=== PATIENT | male | born 1950 | race Caucasian/White ===

== ENCOUNTER 2016-05-25 13:57 | Emergency (ER) | payer MEDICARE ==
--- NOTE | ~2016-05-25 | CR72 ---
[facility] A Service of [facility] RADIOLOGY TEXT RESULTS PATIENT: PARISH LEES LOCATION: SED : 50 UNIT #: [id number] AGE: [address]: Gerard Delgado MD SEX: M ORDER DR: [id number] [place] [id number] MR#: [id number] Acc #: [id number] NAME: PARISH LEES : 1950 SEX: M STUDY DATE/TIME: 05/25/2016 13:46 UNIT: SED ROOM: STUDY DESCRIPTION: CR Chest Single View Portable Attending Physician: Gerard Delgado M.D. Ordering Physician: Gerard Delgado M.D. Primary Care Physician: Primary Care Physician No MEDICAL IMAGING REPORT This report is preliminary unless electronic signature is present. EXAM Chest x-ray, 05/25/2016 HISTORY 66-year-old male in the ED complaining of 1-week history of shortness of air and cough. TECHNIQUE AP portable upright chest x-ray. COMPARISON Chest x-ray 07/09/2015. CT chest 11/02/2013 FINDINGS Current and prior studies show pulmonary emphysema with chronic changes in the upper lungs associated with old granulomatous infection, including reticulonodular upper lung interstitial disease and a chronic cavitary airspace at the right lung apex associated with pleural thickening and volume loss. These findings were best demonstrated on chest CT 11/02/2013. Today, there is new opacification of the right lung apex apparently due to pleural thickening or new pleural fluid causing opacification of the previously air-filled cavitary airspace. Although nonspecific, the appearance is highly concerning for active granulomatous infection, including reactivation TB or fungal superinfection of previously demonstrated cavitary airspace. Sputum evaluation and possible bronchoscopy may be helpful for further evaluation. Remaining portions of both lungs are clear. Heart size is normal. No basilar pleural effusion. IMPRESSION [facility] A Service of [facility] RADIOLOGY TEXT RESULTS PATIENT: PARISH LEES LOCATION: SED : 50 UNIT #: [id number] AGE: [address]: Gerard Delgado MD SEX: M ORDER DR: 1. Chronic upper lung changes associated with old granulomatous infection as detailed above. Pulmonary emphysema. 2. New changes at the right lung apex when compared with the prior study concerning for active atypical infection as noted above. Consider reactivation TB or fungal superinfection. Dictated by... Dagoberto Gil M.D. THIS IS AN ELECTRONICALLY VERIFIED REPORT Dagoberto Gil M.D. at 05/26/2016 8:40 AM MAILE/brayden TD: 05/25/2016 21:06 JOB #: [id number] MEDICAL IMAGING REPORT
[2016-05-25 13:57] LABS: INFLUENZA A NEG (NEG); INFLUENZA B NEG (NEG)
[~2016-05-25 13:57] MED LIST: ADVAIR 2501 DISK W/D IN; ADVAIR 2501 DISK W/D PO; ALBUTEROL17 GM INH; ASPIRIN EC81 M1 PO; ASPIRIN81 M1 PO; ASPIRIN81 M2 PO; BACTRIM DS TABL1 TAB PO; BAYER CHEWABLE81 MG PO; BENZONATATE PO; CHOLESTEROL MED; CLARITHROMYCIN500 MG PO; CLEOCIN PO; CLOPIDOGREL75 MG PO; COMBIVENT INH14.7 GM INH; COREG6.25 MG PO; CRESTOR40 MG PO; ETHAMBUTOL HYD400 MG PO; IBUPROFEN PO; LEVAQUIN PO; LEVAQUIN750 MG PO; LIPITOR PO; LIPITOR20 MG PO; LOPRESSOR PO; LORTAB 5/500 TA1 TA1 PO; MOTRIN600 M2 PO; MYAMBUTOL400 MG PO; NORCO 7.5-3251 EACH PO; NYSTATIN5 ML; NYSTATIN5 ML PO; PLAVIX PO; RIFAMPIN300 MG PO; ROBAXIN500 MG PO; ROBITUSSIN AC PO; TRAMADOL HCL50 M1 PO; ULTRAM PO; WELLBUTRIN SR PO; ZITHROMAX PO
[2016-09-08] MEDS ORDERED: DOXYCYCLINE HY100 M3 PO (11:54)
== END 2016-05-25 15:31 | disposition home or self-care (01) ==
LOC: SED 13:57
PROVIDERS: Emergency Medicine
DX: J18.9 Pneumonia, unspecified organism (principal); J44.9 Chronic obstructive pulmonary disease, unspecified; I25.10 Atherosclerotic heart disease of native coronary artery without angina pectoris; M19.90 Unspecified osteoarthritis, unspecified site; E78.5 Hyperlipidemia, unspecified; Z79.899 Other long term (current) drug therapy; Z79.82 Long term (current) use of aspirin; Z88.5 Allergy status to narcotic agent; Z87.891 Personal history of nicotine dependence
CPT/HCPCS: 71010; 87804; 94640; 96372; 99283; 99284; J0696

== ENCOUNTER 2016-05-29 09:06 | Inpatient (IN) | payer MEDICARE ==
--- NOTE | ~2016-05-29 | EKG ---
PATIENT: PARISH LEES UNIT #: [id number] Ventricular Rate: 93 BPM Atrial Rate: 93 BPM P-R Interval: 150 ms QRS Duration: 116 ms Q-T Interval: 390 ms QTC Calculation(Bezet): 484 ms P [place]: 59 degrees Calculated R [place]: -57 degrees Calculated T [place]: 36 degrees Diagnosis Line: Normal sinus rhythm Diagnosis Line: Incomplete right bundle branch block Diagnosis Line: Left anterior fascicular block Diagnosis Line: Cannot rule out Inferior infarct , age Diagnosis Line: undetermined Diagnosis Line: Abnormal ECG Diagnosis Line: No previous ECGs available Diagnosis Line: Confirmed by MIGNON MEADOWS MD ([id number]) on 05/30/2016 Diagnosis Line: 4:44:15 PM INTERPRETING MD: ABDIEL AC
--- NOTE | ~2016-05-29 | HP ---
Unit #: [id number] #: [id number] Patient: TIN LEES [id number] [address] [address] [id number] I MR#: [id number] NAME: TIN LEES ROOM: 325 Age: 66 Sex: M Admission Date: 05/29/2016 : 1950 Attending Physician: Velasquez Rivera M.D. Primary Care Physician: No Primary Care Physician HISTORY AND PHYSICAL ADMISSION DIAGNOSIS 1. Acute exacerbation of COPD. 2. Pneumonia. 3. History of MAC. 4. History of coronary artery disease, status post PCI with stent. 5. Dyslipidemia. 6. Chronic pain secondary to chronic leg pain. HISTORY OF PRESENT ILLNESS Mr. Tin Lees is a 66-year-old gentleman, patient of Dr. Murguia who comes to the emergency room with complaints of the increased shortness of air and dyspnea. Apparently the patient was seen at the [facility] ER about 05/25/2015 and was diagnosed with acute exacerbation of COPD and was started on some p.o. antibiotics and sent out; however, his condition continued to deteriorate and decided to come to the emergency room today. He also complains of some subjective fever and chills, cough and increasing dyspnea with shortness of breath. Denies any chest pain. Denies any headache or dizziness. Denies any nausea, vomiting, diarrhea, or abdominal pain. REVIEW OF SYSTEMS Twelve point review of systems on this patient is basically negative, except as above. PAST MEDICAL HISTORY 1. History of coronary artery disease. 2. History of MAC. 3. History of COPD. 4. History of chronic pain secondary to chronic low back pain. PAST SURGICAL HISTORY 1. Significant for PCI with stents. 2. Past shoulder surgery. 3. Leg fracture surgery. HOME MEDICATIONS Doxycycline, Plavix, aspirin, hydrocodone, and Lipitor. ALLERGIES Codeine. SOCIAL HISTORY Quit smoking six year ago. Denies any alcohol or illicit drugs. Unit #: [id number] #: [id number] Patient: TIN LEES FAMILY HISTORY Unremarkable. PHYSICAL EXAMINATION GENERAL APPEARANCE: Patient is a 66-year-old, gentleman in no acute distress. VITAL SIGNS: BP 119/77, heart rate 91, respirations 19, temperature 98. HEENT: Head is atraumatic. Pupils equal, round, and reactive to light and accommodation. Extraocular muscles intact. Oropharynx clear. NECK: Supple. No mass. No JVD. No bruits. CHEST: Diminished bilaterally with the mild expiratory wheezing. CARDIOVASCULAR: S1 and S2. No murmurs. ABDOMEN: Soft, nontender, and nondistended. LOWER EXTREMITIES: Without cyanosis, clubbing, or edema. NEUROLOGIC: Patient grossly intact. No focal deficits. DIAGNOSTIC STUDIES LABORATORY STUDIES: ABG showed pH of 7.543, pCO2 28, pO2 79, pCO2 28, pO2 79. Chemistry significant blood glucose 118, chloride 99, albumin 3.1, PTT 39.9, PT INR 10.7 and 1.0. Set of cardiac enzymes negative. White count 8.6, H and H 13.6 and 41.2, platelets 294. Urine shows trace leukocyte esterase. IMAGING STUDIES: Chest x-ray - chronic lung changes with the demonstration of the cavitary lesion in the right lung apex. There is no significant change from 05/25/2016. The exam is demonstrating findings concerning for super infection or atypical infection including fungal infection or TB. ASSESSMENT 1. (1) respiratory failure. 2. Pneumonia. 3. Acute exacerbation of COPD. 4. History of coronary artery disease. 5. History of MAC infection. 6. Dyslipidemia. 7. Chronic pain. PLAN 1. Started on Zithromax and Rocephin, which we will continue. 2. Also I had scheduled DuoNeb, Pulmicort and Solu-Medrol. Pulmonary consult with Dr. Wan. 3. GI and DVT prophylaxis with PPI and Lovenox. Dictated by Alayna Chowdhury/ernie TD: 05/30/2016 05:34 JOB #: [id number] Unit #: [id number] #: [id number] Patient: TIN LEES HISTORY AND PHYSICAL X Velasquez Rivera MD HISTORY AND PHYSICAL
--- NOTE | ~2016-05-29 | CT16 ---
[facility] A Service of [facility] & [facility] RADIOLOGY TEXT RESULTS PATIENT: PARISH LEES LOCATION: [facility] 325-01 : 50 UNIT #: [id number] AGE: [address]: Velasquez Rivera MD SEX: M ORDER DR: [id number] [facility] [address] [facility]. [place], [place] [address] [id number] MR#: [id number] Acc #: [id number] NAME: PARISH LEES : 1950 SEX: M STUDY DATE/TIME: 05/29/2016 11:32 UNIT: A U ROOM: [facility] STUDY DESCRIPTION: CT Angio Chest for PE Attending Physician: Velasquez Rivera M.D. Ordering Physician: Gilson Cates M.D. Primary Care Physician: Primary Care Physician No MEDICAL IMAGING REPORT This report is preliminary unless electronic signature is present EXAM CT scan of the chest with contrast with pulmonary embolus protocol HISTORY Shortness of air, body aches, difficulty urinating for 2 days. COMPARISON Chest x-ray from 05/29/2016 as well as 07/09/2015. TECHNIQUE This CT exam was performed with one or more of the following radiation dose reduction techniques: automatic control, adjustment of mA and/or kV according to patient size, and iterative reconstruction. FINDINGS The patient was given 80 mL of Isovue 370 and spiral imaging was performed through the chest. There is adequate opacification of the pulmonary arteries and there is no CT evidence of pulmonary embolus. The right upper lobe small pulmonary branches are either occluded or attenuated. In addition to the chronic changes in the right upper lobe there seems to be a apical mass. Where as previously there was a well-circumscribed air collection in the right upper lobe surrounded by thin smooth pleural thickening there is a now a irregular air collection in the right upper lobe with a 2.5 cm thick rind of soft tissue surrounding it and filling the apex. There also seems to be a mass or node in the right suprahilar region measuring 2.5 cm in diameter and there are enlarged lymph nodes in the right paratracheal region with 2 or 3 nodes present measuring up to 18 mm in diameter. There are marked emphysematous changes with pleural based nodularity in the left lung and this is unchanged from 2014. There are some nodular areas that are new from 2014 such as the one in the right middle lobe that measures about 11 mm in diameter. There is what appears to be pneumonia in the right lower lobe measuring about 9.3 cm in diameter [facility] A Service of [facility] & [facility] RADIOLOGY TEXT RESULTS PATIENT: PARISH LEES LOCATION: A 325-01 : 50 UNIT #: [id number] AGE: [address]: Velasquez Rivera MD SEX: M ORDER DR: and possibly in the left lower lobe as well measuring 5.3 cm in diameter. IMPRESSION 1. There is no CT evidence of pulmonary embolus but there does seem to be a large apical mass that has developed since 2014. The large bolus surrounded by thin pleural thickening noted in 2014 has changed dramatically with a marked soft tissue thickening surrounding a irregular air space in this region. The soft tissue is up to 2.5 cm in thickness. There is also adenopathy and a possible right suprahilar mass. Malignancy is suspected. Correlation with PET/CT scan is recommended. 2. The lungs have multiple peripheral nodules many of which were present in 2014. At least one is new in the right mid lobe measuring 11 mm in diameter. 3. There are areas of increased interstitial prominence in the right lower lobe greater than left lower lobe suggesting areas of pneumonia. Dictated by... Estrada Preciado M.D. THIS IS AN ELECTRONICALLY VERIFIED REPORT Estrada Preciado M.D. at 05/30/2016 1:26 PM LETI/rebecca TD: 05/29/2016 14:23 JOB #: [id number] MEDICAL IMAGING REPORT COPY
--- NOTE | ~2016-05-29 | EKG ---
PATIENT: PARISH LEES UNIT #: [id number] Ventricular Rate: 75 BPM Atrial Rate: 75 BPM P-R Interval: 150 ms QRS Duration: 114 ms Q-T Interval: 438 ms QTC Calculation(Bezet): 489 ms P [place]: 55 degrees Calculated R [place]: -59 degrees Calculated T [place]: -43 degrees Diagnosis Line: Sinus rhythm Diagnosis Line: Left anterior fascicular block Diagnosis Line: T wave abnormality, consider inferior ischemia Diagnosis Line: Prolonged QT Diagnosis Line: Abnormal ECG Diagnosis Line: No previous ECGs available Diagnosis Line: Confirmed by ELISE PAIGE MD ([id number]) on 05/31/2016 Diagnosis Line: 6:01:42 PM INTERPRETING MD: GRECIA AC
--- NOTE | ~2016-05-29 | DS ---
Unit #: [id number] #: [id number] Patient: TIN LEES [id number] [address] [address] [id number] I MR#: [id number] NAME: TIN LEES ROOM: 325 Age: 66 Sex: M Admission Date: 05/29/2016 : 1950 Discharge Date: 06/02/2016 Attending Physician: Velasquez Rivera M.D. Primary Care Physician: No Primary Care Physician DISCHARGE SUMMARY FINAL DIAGNOSES 1. Acute exacerbation of chronic obstructive pulmonary disease. 2. Pneumonia. 3. Right upper lobe questionable apical mass, questionable malignancy. 4. Nonsustained ventricular tachycardia. 5. History of myocardial infarction in 2006; known coronary artery disease with history of stents. 6. Stress test done, which showed large inferior and lateral wall myocardial infarction, moderate dilated left ventricle, left ventricular ejection fraction of 38%. 7. Hyperlipidemia. 8. Reformed tobacco abuse. DISCHARGE MEDICATIONS 1. Lopressor 25 mg b.i.d. 2. Prednisone tapering dose. 3. Lipitor 20 mg at bedtime. 4. Zestril 5 mg daily. 5. Aspirin 81 mg daily. 6. [place] continue home dose. 7. Plavix 75 mg daily. 8. Spironolactone 25 mg daily. 9. Please note the patient received a Z-Norris and ceftriaxone during hospitalization. Will place him on p.o. antibiotics, although he has completed 4 days of antibiotics, so maybe 3 more days can be given. CONSULTATIONS DONE DURING HOSPITALIZATION 1. Dr. Field from cardiology service. 2. Dr. Shi from pulmonary service. DIAGNOSTIC STUDIES LAB WORKUP ON DISCHARGE: CBC showed WBC of 13, hemoglobin 12.5, hematocrit 39 and platelet count of 407. Sputum culture is 2+ normal kavita. BMP shows sodium 137, potassium 4.4, chloride 102, BUN 21, creatinine 0.7, magnesium 2.1. TSH is 0.17. Hemoglobin A1C 6. Troponin less than 0.03. CARDIOVASCULAR: Exercise Cardiolite stress test, which showed suspicion for large myocardial infarction along the inferior and the inferolateral wall of the left ventricle, no obvious stress-induced ischemia. Left ventricular ejection fraction is calculated to be 38%. There is inferior wall and lateral wall akinesis noted. Left ventricular cavity is moderately dilated both at rest and post stress. Suspicion for [id number]-[id number] ischemic cardiomyopathy with large inferior and lateral Unit #: [id number] #: [id number] Patient: TIN LEES myocardial infarction and no obvious stress-induced ischemia. SIGNIFICANT RADIOLOGICAL STUDIES DONE: CTA of the chest - Acute pulmonary embolism was ruled out. The patient has a large apical mass, up to 2.5 cm, and also adenopathy and possible right suprahilar mass. Possibility of malignancy. HOSPITAL COURSE Mr. Tin Lees is a 66-year-old male who was admitted to the hospital by my colleague, Dr. Rivera, with acute exacerbation of COPD and pneumonia. The patient was started on IV Solu-Medrol, Mini-Neb treatment and IV antibiotics. Dr. Shi was consulted. 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 He was treated with antibiotic previously but has been off for a year or so. As per Dr. Shi, right upper lobe with possible mass and worsening distortion could be consistent with malignancy. The patient may require bronchoscopy. He will likely require follow up CT scans every 3 to 4 months for the next 2 years and with outpatient PET scan. All this workup will be done by Dr. Shi as outpatient. Cardiology was consulted for known supraventricular tachycardia. The patient has a history of coronary artery disease. He had VT in 2006 with multiple stent placements at that time. Repeat stent placement was done in 2014. Stress test was done, and findings are as above. The patient's medications have been adjusted. The patient is on beta-kathy, SALMA inhibitors, Aldactone. The patient has an appointment with Dr. King on July 14 at 2:15 p.m. He may need outpatient elective AICD. The patient is being discharged home. The patient has been advised to be compliant with medications and no tobacco use. He does verbalize understanding. Plan of care has been discussed with the patient at length. He does verbalize understanding. DISCHARGE INSTRUCTIONS 1. Follow up with Dr. King on July 14, 2016 at 2:15 p.m. 2. Follow up with primary care provider in 1 week. 3. Follow up with Dr. Shi in 1-2 weeks. Dictated by... Donita Du M.D. NISSA/sherice HOPKINS: 06/02/2016 14:50 TD: 06/04/2016 08:52 JOB #: [id number] Unit #: [id number] #: [id number] Patient: TIN LEES DISCHARGE SUMMARY X Donita Du MD X DISCHARGE SUMMARY
--- NOTE | ~2016-05-29 | CO ---
Unit #: [id number] #: [id number] Patient: PARISH LEES [id number] [facility] [address] [place], [place] [address] [id number] I MR#: [id number] NAME: PARISH LEES ROOM: 325 Age: 66 Sex: M Admission Date: 05/29/2016 : 1950 Attending Physician: Velasquez Rivera M.D. Primary Care Physician: Primary Care Physician No CONSULTATION REPORT HISTORY OF PRESENT ILLNESS A 66-year-old gentleman seen in our office previously for emphysema as well as treatment of CECILIA for which he has been off antibiotics for about 1 year. The patient reports "feeling bad for about 2 weeks or so with some dyspnea on exertion and cough. However, last week, he began feeling worse, so he went to [facility] and was swabbed for the flu and was told he was negative, was diagnosed with acute exacerbation of COPD and was sent home with antibiotics and steroids. He says after 4 days of being on the antibiotics and steroids, he has not gotten better and he had even maybe gotten worse. He was having worsening shortness of breath and cough that have become productive of thin sputum that was occasionally blood streaked, although he does say that this is not abnormal for him. He also reported decreased appetite, diarrhea that had started after he started the antibiotics as well as generalized aches and pains with increased weakness. He denied any fever or chills. He says he is up to date with his flu and pneumonia vaccines. When I asked about sick contacts, he reports that one of his friends had also been sick lately and is actually currently in inpatient here at [facility] being treated for pneumonia. He says he does not use any inhalers or breathing treatments at home, does not have home oxygen. He says he has received a couple of doses of antibiotics since his admission last night, and feels much better and is even ready to go home. The patient is a former smoker and reports that he smoked for about 40 years and quit approximately 4 years ago. PAST MEDICAL HISTORY Significant for: 1. COPD. 2. CECILIA for which he was treated with antibiotics and has been off them for about 1 year. 3. Coronary artery disease. ALLERGIES Codeine. HOME MEDICATIONS The patient was on doxycycline, Plavix, aspirin, hydrocodone, Lipitor, currently unsure of the dosages of all of those. REVIEW OF SYSTEMS Negative except for what was mentioned in the HPI. SOCIAL HISTORY Unit #: [id number] #: [id number] Patient: PARISH LEES The patient is a former smoker. He says he smoked for approximately 40 years and quit about 4 years ago. PHYSICAL EXAMINATION VITAL SIGNS: Temperature was 97.4, heart rate 91, respirations 18, blood pressure 103/66, oxygen saturation was 95% on room air. GENERAL: The patient is in no acute distress, sitting up on the edge of the bed, eating lunch. NEURO: He is awake, alert, and oriented x3. HEENT: Without adenopathy and without JVD. LUNGS: Clear bilaterally. Respirations are even and unlabored on room air. CARDIOVASCULAR: The patient has regular rate and rhythm. ABDOMEN: Soft, round, nontender with positive bowel sounds. EXTREMITIES: Without edema. SKIN: Without lesions or rashes. DIAGNOSTIC STUDIES LABORATORY RESULTS: The patient's rapid flu swab was negative. ABG in the ER revealed a pH of 7.54, pCO2 of 28, pO2 of 79, bicarb of 24, and this was on room air. This morning on 05/30/2016 white blood cell count was 12.1, hemoglobin 12.7, platelets 309. Sodium was 136, potassium 3.9, BUN 19, creatinine 0.8. IMAGING STUDIES: CT PE protocol did not reveal any PE, did reveal multiple nodules that were more pleural-based, most of which were present in 2014, it appears that there may be one new nodule in the right middle lobe. There also severe emphysematous changes as well as changes to the right upper lobe bulla or cavitation that was previously seen in 2014. 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 Bilateral lower lobes revealed increased markings that are consistent with pneumonia. ASSESSMENT AND PLAN 1. Bilateral lower lobe pneumonia. We would like to check a sputum culture and check a procalcitonin in the morning. He is currently on Zithromax and Rocephin, which is fine. We would also like to check a respiratory viral panel if he is going to be here. 2. History of Mycobacterium avium-intracellulare. He was treated with antibiotics previously, but has been off these for a year. 3. Acute exacerbation of chronic obstructive pulmonary disease. He is currently on IV steroids, which I will go ahead and wean these, also on nebs every 4 hours. 4. Right upper lobe with a possible mass and worsening distortion could be consistent with malignancy. The patient may require bronchoscopy. The patient has previously had a bronchoscopy done by Dr. Minor in 2010. He will however likely require follow up CT scans in every 3 to 4 months for the next 2 years or even an outpatient PET scan. 5. Prophylaxis. The patient is on prophylactic Lovenox. Thank you very much for this consult and allowing us to participate in the care of this patient. Dictated by... Jenny Lyles APRN for Poornima Shi M.D. Unit #: [id number] #: [id number] Patient: PARISH LEES AT/april TD: 05/30/2016 22:53 JOB #: [id number] CONSULTATION REPORT X Jenny Lyles X CONSULTATION REPORT
--- NOTE | ~2016-05-29 | TH ---
Unit #: [id number] #: [id number] Patient: PARISH LEES [id number] [address] [address] [id number] I MR#: [id number] NAME: PARISH LEES : 1950 SEX: M STUDY DATE/TIME: UNIT: C3A PCU ROOM: [facility] STUDY DESCRIPTION: Nuclear Study Attending Physician: Velasquez Rivera M.D. Primary Care Physician: Magdalena Primary Care Physician CARDIOLOGY REPORT EXAM Exercise Cardiolite Stress Test - Nuclear Portion PROCEDURE Using technetium 99m labeled Cardiolite, rest and stress SPECT images were obtained. Multiple SPECT images were obtained in various views including horizontal and vertical long axis and short axis views of the left ventricle. Images were obtained by gated SPECT method. The patient was administered 11.09 mCi of Cardiolite at rest. The patient was administered 32.3 mCi of Cardiolite at peak exercise. Total exercise time is 7 minutes 40 seconds. On the stress images, there is a large area of severe decreased isotope activity involving the entire inferior and the inferolateral wall of the left ventricle. The rest images also show a large area of severe decreased isotope activity involving the inferior and the inferolateral wall. Comparing rest and stress images, there is suspicion for large myocardial infarction involving the inferior and the inferolateral wall of the left ventricle. No obvious stress-induced ischemia noted. The left ventricular ejection fraction is calculated to be 38%. There is akinesis involving the inferior and the lateral harding. The left ventricular cavity is moderately dilated, both at rest and post stress. CONCLUSION 1. Suspicion for large myocardial infarction involving the inferior and the inferolateral wall of the left ventricle. 2. No obvious stress-induced ischemia noted. 3. The left ventricular ejection fraction is calculated to be 38%. 4. There is inferior wall and lateral wall akinesis noted. 5. The left ventricular cavity is moderately dilated both at rest and post stress. 6. Suspicion for moderate to severe ischemic cardiomyopathy with large inferior and lateral myocardial infarction and no obvious stress-induced ischemia. Dictated by... Alayna Gould/hugh Unit #: [id number] #: [id number] Patient: PARISH LEES TD: 06/02/2016 12:34 JOB #: [id number] CARDIOLOGY REPORT X Autumn Field MD <ELECTRONICALLY SIGNED> 10/18/16 1429 CARDIOLOGY REPORT
--- NOTE | ~2016-05-29 | CO ---
Unit #: [id number] #: [id number] Patient: PARISH LEES [id number] [address] [place], [place] [address] [id number] I MR#: [id number] NAME: PARISH LEES ROOM: 325 Age: 66 Sex: M Admission Date: 05/29/2016 : 1950 Attending Physician: Velasquez Rivera M.D. Consultation Date: 05/31/2016 CONSULTATION REPORT REASON FOR CONSULT Nonsustained ventricular tachycardia. HISTORY OF PRESENT ILLNESS This is a 66-year-old male with a past medical history of coronary artery disease, VA in 2006 with multiple stent placements at that time and repeat stent placement in 2014, hyperlipidemia, MAC, COPD, and reformed tobacco abuse. The patient initially presented to the emergency room with complaints of shortness of breath and dyspnea. He states he was seen at [facility] on May 25, 2016, and treated for acute exacerbation of COPD and placed on oral antibiotics and sent home. The patient reports his symptoms continued to worsen and shortness of breath continued to worsen, and he reported intermittent fever and chills. He denies any PND or orthopnea. He does state he gets short of breath with minimal activity. He does report a productive cough with a trace of hemoptysis which he states he has had since he was diagnosed with MAC in 2012. Patient has been started on antibiotics and is being treated for pneumonia. Pulmonary is following. Of note, the patient states he has not followed with any cruise coordinator since his stent was placed in 2014. He does report he is very active. He cuts grass. 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 He denies any complaints of chest pain, tightness, or pressure. He denies any palpitations, syncope, or dizziness. The patient reports he was unaware of his cardiac rhythm as this occurred when he was sleeping last night. At present, he is resting in bed. He appears comfortable, and he is in no acute distress. EKG shows sinus rhythm with PACs, rate of 75 beats per minute, and left anterior fascicular block. T wave abnormality is noted in the inferior leads. QTc interval of 489 msec. The patient did undergo a Lexiscan stress test in June 2014 at [facility] which showed poor exercise tolerance and a large defect inferolaterally with mild intensity redistribution ischemia. Ejection fraction at that time was noted to be 35%. He also a 2D echocardiogram around the same time which showed left ventricular enlargement, EF of 30% to 35%, trivial MR, and mild TR. The patient does also inform me that he not been taking his heart medications at home for approximately the last eight to nine months. He states he has not been taking his aspirin, Plavix, or his statin therapy. The only thing he has been consistently taking are his pain medications. He reports he has been doing this just because he is lazy. Unit #: [id number] #: [id number] Patient: PARISH LEES PAST MEDICAL HISTORY 1. Coronary artery disease with history of myocardial infarction and stents x5 in 2006 and subsequent stent in 2014. 2. Hyperlipidemia. 3. Chronic pain. 4. Mycobacterium avium complex diagnosed in 2012 and treated with antibiotics for three years at [facility] [place] [facility]. 5. Reformed tobacco abuse. 6. Chronic obstructive pulmonary disease. PAST SURGICAL HISTORY 1. Percutaneous coronary intervention with stents x5 first in 2006 and subsequent 2015 stent. Cardiac catheterization report is currently unavailable. 2. Shoulder surgery. 3. Leg surgery secondary to fracture. HOME MEDICATIONS 1. Doxycycline 100 mg p.o. b.i.d. 2. Plavix 75 mg p.o. daily. 3. Aspirin 81 mg p.o. daily. 4. Hydrocodone 10/325 at 1 tab t.i.d. p.r.n. 5. Lipitor 20 mg p.o. at bedtime. Please note, the patient reports to me however, he has not been taking his Plavix, aspirin, or statin therapy for approximately the last eight to nine months. ALLERGIES CODEINE. SOCIAL HISTORY The patient is on disability. He denies any illicit drugs or alcohol use. He is a reformed smoker, quit smoking approximately six years ago. FAMILY HISTORY Heart problems in his sister, however, the patient is unsure what. Also, mother had permanent pacemaker and AICD placement. Again, he is unsure for what reason. PHYSICAL EXAMINATION VITAL SIGNS: Temperature 97.7, respiratory rate 18-20, pulse 79, blood pressure 109/72 to 118/78, and oxygen saturation is 96% on room air. BMI is 23. GENERAL: He is a 66-year-old gentleman in no acute distress. HEENT: Head is atraumatic and normocephalic. Pupils are equal and round. Extraocular muscles are intact. Oropharynx is clear. Mucous membranes are moist. NECK: Supple. No mass, no JVD, no bruits. CHEST: Diminished throughout. No adventitious breath sounds, no rales, no rhonchi, and no wheezes. CARDIOVASCULAR: S1 and S2. No murmur, gallop, or rub. ABDOMEN: Soft, nontender, and nondistended. Bowel sounds are present. LOWER EXTREMITIES: Pulses are palpable. No clubbing, cyanosis, or edema. DIAGNOSTIC STUDIES LABORATORY: Sodium 138, potassium 4.7, chloride 105, CO2 of 26, BUN 19, creatinine 0.7, and glucose 147. Magnesium level is currently pending. Unit #: [id number] #: [id number] Patient: PARISH LEES Hemoglobin 11.9, hematocrit 37.2, WBC 19.5, and platelet count 347,000. Initial point of care troponins have been negative. IMAGING: Chest x-ray shows chronic lung changes with the demonstration of a cavitary lesion in the right lung apex. No significant change. CTA of the chest shows no evidence of PE, but there does appear to be a large apical mass that has developed since 2014. The large bolus surrounded by thin pleural thickening noted in 2014 has changed dramatically with a marked soft tissue thickening surrounding irregular air space in this region. The soft tissue is up to 2.5 cm in thickness. Suspicious for malignancy. There is also adenopathy and a possible right suprahilar mass. Correlation with PET/CT scan is recommended. The lungs have multiple peripheral nodules. At least one is new in the right mid lobe measuring 11 mm in diameter. Increased areas of interstitial prominence in the right lower lobe greater than the left suggestive of pneumonia. CARDIOLOGY: EKG normal sinus rhythm, rate of 75 beats per minute, left anterior fascicular block, and T wave abnormality in inferior leads, nonspecific. No acute ischemic change. Prolonged QTc interval of 489 msec. IMPRESSION 1. Acute exacerbation of chronic obstructive pulmonary disease. 2. Pneumonia. 3. Right upper lobe apical mass, questionable malignancy. 4. Nonsustained monomorphic ventricular tachycardia. 5. Ischemic cardiomyopathy. 6. Old inferior myocardial infarction. 7. History of Mycobacterium avium. 8. History of hyperlipidemia. 9. Reformed tobacco. 10. Noncompliance with medications. PLAN 1. We were asked to see secondary to the patient having a 36-beat run of nonsustained ventricular tachycardia. At the time this occurred, the patient was asleep. He denies any complaints of chest pain. Initial point of care troponins have been negative, however, will trend cardiac enzymes and troponin q.6 hours for two additional sets. Please have the nurse call if abnormal. Will also try to obtain recent echocardiogram and stress test from [facility]. 2. The patient will also have a 2D echocardiogram to reassess left ventricular systolic ejection fraction, as well as for any structural abnormality. He will be started on beta blockers and an antiarrhythmic to help prevent LV remodeling. He will also be started on afterload reducing agent with lisinopril 5 mg p.o. at bedtime. Will start Aldactone 25 mg p.o. daily. 3. His Plavix will be discontinued at this time. He will however, be continued on aspirin and statin therapy. 4. If the patient needs lobectomy or thoracotomy, he should have his coronary anatomy defined by repeat cardiac catheterization. This has been discussed with the patient. 1. Dictated by... Xiomy Krishnamurthy A.P.R.N. for Asaf King M.D. LMW/am Unit #: [id number] #: [id number] Patient: PARISH LEES TD: 06/01/2016 16:17 JOB #: [id number] CONSULTATION REPORT X Xiomy Krishnamurthy APRN X CONSULTATION REPORT
--- NOTE | ~2016-05-29 | ST ---
Unit #: [id number] #: [id number] Patient: PARISH LEES [id number] [address] [address] [id number] I MR#: [id number] NAME: PARISH LEES : 1950 SEX: M STUDY DATE/TIME: 06/02/2016 UNIT: C3A PCU ROOM: [facility] STUDY DESCRIPTION: Attending Physician: Velasquez Rivera M.D. Primary Care Physician: Magdalena Primary Care Physician CARDIOLOGY REPORT EXAM EKG portion of a treadmill Cardiolite stress test. REASON FOR TEST Ventricular tachycardia. FINDINGS Baseline EKG showed normal sinus rhythm with left axis deviation with a rate of 71. The patient exercised on the treadmill according to Chuck protocol for a total exercise time of 7 minutes and 40 seconds. The patient's resting heart rate was 72 with a maximum heart rate of 133 which represents 86% of the maximum age-predicted heart rate. The patient's resting blood pressure was 124/82 with a maximum blood pressure of 140/90 which represents a maximum workload of 9.5 METs. During the test, the patient did have occasional PVC noted but that was not associated with any kind of chest pain, pressure, or dizziness. The patient did not have any sustained ventricular tachycardia or any other sustained arrhythmias. There were no changes to the ST segment. There were no sustained arrhythmias. The patient tolerated well with no complications. The most limiting factor was his shortness of breath due to his MAC. Patient states that the shortness of breath was the most severe symptom that he had. When patient's heart rate reached 127 to 131 range, the patient did complain of a slight chest pain to the left chest that subsided as soon as the test ended. No reversal was needed. No complications with the test. IMPRESSION 1. Occasional multifocal PVC noted throughout the test. 2. No sustained arrhythmias. 3. No changes to the ST segment. 4. Only mild complaint of chest pain to the left chest when heart rate reached 127 to 131 that resolved as soon as the test ended. 5. The patient's most limiting factor was his shortness of breath. 6. No complications of the test. 7. Please correlate with Cardiolite imaging. Dictated by... LELE Alas Unit #: [id number] #: [id number] Patient: PARISH LEES TD: 06/02/2016 10:43 JOB #: [id number] CARDIOLOGY REPORT X CARDIOLOGY REPORT
--- NOTE | ~2016-05-29 | CR72 ---
[facility] A Service of [facility] & [facility] RADIOLOGY TEXT RESULTS PATIENT: PARISH LEES LOCATION: [facility] : 50 UNIT #: [id number] AGE: [address]: Gilson Cates MD SEX: M ORDER DR: [id number] [facility] [address] [place], [place] [address] [id number] E MR#: [id number] Acc #: [id number] NAME: PARISH LEES : 1950 SEX: M STUDY DATE/TIME: 05/29/2016 8:56 UNIT: [facility] ROOM: STUDY DESCRIPTION: CR Chest Single View Portable Attending Physician: Gilson Cates M.D. Ordering Physician: Gilson Cates M.D. Primary Care Physician: No Primary Care Physician MEDICAL IMAGING REPORT This report is preliminary unless electronic signature is present EXAM Frontal chest, 05/29/2016. INDICATION Cough and shortness of air in a 66-year-old male. Hemoptysis, unable to urinate, cough, symptoms 2 weeks. Tobacco abuse for multiple years but quit 6 years ago. TECHNIQUE Frontal chest compared with 05/25/2016. FINDINGS There is deviation of the tracheal air column to the right unchanged. Cardiac silhouette is stable. Vascularity unremarkable. Lungs demonstrate pulmonary hyperinflation and there is probable fibrosis and scarring in both lung bases. Additional areas of scarring and fibrosis are present in the upper lung zone on the left. In the right lung apex, there is redemonstration of a cavitary focus in the right lung. Better demonstrated on the study of 05/25/2016 is pleural thickening or pleural fluid causing partial opacification of the cavitary lesion. There has been no significant interval change from the prior study. Differential would include the possibility of superinfection of a preexisting bleb, but also includes the possibility of fungal superinfection or TB as previously described. Bronchoscopy and sputum samples may be helpful for further assessment. IMPRESSION Chronic lung changes with redemonstration of a cavitary lesion in the right lung apex. There has been no significant change from 05/25/2016 demonstrating findings concerning for superinfection or atypical infection including fungal infection or TB. [facility] A Service of [facility] RADIOLOGY TEXT RESULTS PATIENT: PARISH LEES [id number] 50 UNIT #: [id number] AGE: [address]: Gilson Cates MD SEX: M ORDER DR: Dictated by... Gerard Varela M.D. THIS IS AN ELECTRONICALLY VERIFIED REPORT Gerard Varela M.D. at 05/29/2016 11:46 AM REBECA/fadia TD: 05/29/2016 10:15 JOB #: [id number] MEDICAL IMAGING REPORT COPY
[2016-05-29 09:28] LABS: ARTERIAL BLD GAS O2 SATURATION 96.4 % (90.0-100.0); ARTERIAL BLOOD GAS CARBOXY HB 0.9 %sat (0.0-9.0); ARTERIAL BLOOD GAS HCO3 24.1 mmol/L; ARTERIAL BLOOD GAS MET HB 0.5 %sat (0.0-2.0); ARTERIAL BLOOD GAS pH 7.543 (7.350-7.450)
[2016-05-29 09:30] LABS: ARTERIAL BLOOD GAS ALLEN TEST NORMAL; ARTERIAL BLOOD GAS ART SITE RIGHT RADIAL; ARTERIAL DRAW? YES
[2016-05-29 09:35] LABS: BASOPHIL% 0.3 % (0-2.5); EOSINOPHIL# 0.3 X10e3 (0-0.7); EOSINOPHIL% 3.1 % (0.0-7.0); HEMATOCRIT 41.2 % (38.0-50.0); HEMOGLOBIN 13.6 gm/dL (13.0-16.0); LYMPHOCYTE# 1.3 X10e3 (1.0-3.5); LYMPHOCYTE% 14.6 % (17.0-45.0); MEAN CELL VOLUME 85.1 FL (83-96); MEAN CORPUSCULAR HEMOGLOBIN 28.2 PG (28-34); MEAN CORPUSCULAR HGB CONC 33.1 g/dL (30-36); MEAN PLATELET VOLUME 7.4 FL (6.5-11.5); MONOCYTE# 1.1 X10e3 (0-1.0); MONOCYTE% 12.9 % (3.0-12.0); NEUTROPHIL% 69.1 % (40-75); PLATELET COUNT 294 X10e3 (140-420); RED BLOOD COUNT 4.84 X10e (3.90-5.60); RED CELL DISTRIBUTION WIDTH 14.6 % (11.0-15.5); WHITE BLOOD COUNT 8.6 X10e3 (4.0-10.5)
[2016-05-29 09:38] LABS: DIFF IND NO
[2016-05-29 09:46] LABS: POC - CKMB 1.3 ng/mL (0.0-7.9); POC - TROPONIN <0.05 ng/mL (<=0.05)
[2016-05-29 09:56] LABS: PARTIAL THROMBOPLASTIN TIME 39.9 SECONDS (23.5-31.3); PROTHROMBIN TIME (PATIENT) 10.7 SECONDS (9.6-11.5)
[2016-05-29 09:59] LABS: ALBUMIN SERUM 3.1 g/dL (3.5-5.0); ALKALINE PHOSPHATASE 55 U/L (32-92); ALT (SGPT) 26 U/L (10-40); AST (SGOT) 37 U/L (10-42); BILIRUBIN, DIRECT 0.1 mg/dL (0.0-0.2); BILIRUBIN,INDIRECT 0.7 mg/dL (0.0-0.9); BILIRUBIN,TOTAL 0.8 mg/dL (0.2-2.0); BLOOD UREA NITROGEN 11 mg/dL (9-23); BUN/CREATININE RATIO 13.75; CALCIUM SERUM 8.6 mg/dL (8.4-10.2); CARBON DIOXIDE 26 mmol/L (22-31); CHLORIDE 99 mmol/L (100-111); CREATININE SERUM 0.8 mg/dL (0.6-1.4); GLOM FILT RATE Estimated ABOVE60 mL/min (>60); GLUCOSE FASTING 118 mg/dL (70-110); POTASSIUM 3.6 mmol/L (3.5-5.1); PROTEIN TOTAL SERUM 7.4 g/dL (6.0-8.3); SODIUM 135 mmol/L (135-145)
[2016-05-29 11:33] LABS: URINE SOURCE CLEAN CATCH
[2016-05-29 11:41] LABS: URINE APPEARANCE CLEAR; URINE BLOOD NEG (NEG); URINE COLOR DK YELLOW; URINE GLUCOSE 250 MG/DL (NEG); URINE KETONE TRACE (NEG); URINE LEUKOCYTE ESTERASE TRACE (NEG); URINE NITRATE NEG (NEG); URINE PH 5.5 (5-8); URINE PROTEIN 1+ (NEG); URINE SPECIFIC GRAVITY 1.028 (1.003-1.035)
[2016-05-29 11:43] LABS: POC - CKMB 1.5 ng/mL (0.0-7.9); POC - TROPONIN <0.05 ng/mL (<=0.05)
[2016-05-29 11:44] LABS: URINE BACTERIA AUWI NEG (NEGATIVE); URINE SQUAMOUS EPITHELIAL CELL NONE SEEN /[HPF]
[2016-05-29 11:45] LABS: CULTURE INDICATED? NO; URINE BILIRUBIN NEG (NEG)
[2016-05-29 12:29] LABS: POC - TROPONIN <0.05 ng/mL (<=0.05)
[2016-05-29] MEDS ORDERED: DOXYCYCLINE HY100 M3 PO (15:34)
[2016-05-29] MEDS ORDERED: CLOPIDOGREL75 MG PO (15:34)
[2016-05-29] MEDS ORDERED: ASPIRIN81 MG PO (15:35)
[2016-05-29] MEDS ORDERED: HYDROCODON-ACE1 EAC5 PO (15:35)
[2016-05-29] MEDS ORDERED: LIPITOR20 MG PO (15:36)
[2016-05-30 06:10] LABS: BASOPHIL% 0.2 % (0-2.5); HEMATOCRIT 39.4 % (38.0-50.0); HEMOGLOBIN 12.7 gm/dL (13.0-16.0); LYMPHOCYTE# 0.7 X10e3 (1.0-3.5); MEAN CELL VOLUME 85.3 FL (83-96); MEAN CORPUSCULAR HEMOGLOBIN 27.5 PG (28-34); MEAN CORPUSCULAR HGB CONC 32.2 g/dL (30-36); MEAN PLATELET VOLUME 7.4 FL (6.5-11.5); MONOCYTE# 0.8 X10e3 (0-1.0); MONOCYTE% 6.3 % (3.0-12.0); NEUTROPHIL# 10.6 X10e3 (1.5-7.1); NEUTROPHIL% 87.5 % (40-75); PLATELET COUNT 309 X10e3 (140-420); RED BLOOD COUNT 4.62 X10e (3.90-5.60); RED CELL DISTRIBUTION WIDTH 14.7 % (11.0-15.5); WHITE BLOOD COUNT 12.1 X10e3 (4.0-10.5)
[2016-05-30 06:14] LABS: DIFF IND NO
[2016-05-30 06:43] LABS: BLOOD UREA NITROGEN 19 mg/dL (9-23); BUN/CREATININE RATIO 23.75; CALCIUM SERUM 8.8 mg/dL (8.4-10.2); CARBON DIOXIDE 25 mmol/L (22-31); CHLORIDE 104 mmol/L (100-111); CREATININE SERUM 0.8 mg/dL (0.6-1.4); GLOM FILT RATE Estimated ABOVE60 mL/min (>60); GLUCOSE FASTING 203 mg/dL (70-110); POTASSIUM 3.9 mmol/L (3.5-5.1); SODIUM 136 mmol/L (135-145)
[2016-05-31 07:26] LABS: HEMATOCRIT 37.2 % (38.0-50.0); HEMOGLOBIN 11.9 gm/dL (13.0-16.0); MEAN CORPUSCULAR HEMOGLOBIN 27.2 PG (28-34); MEAN PLATELET VOLUME 7.2 FL (6.5-11.5); RED BLOOD COUNT 4.37 X10e (3.90-5.60); RED CELL DISTRIBUTION WIDTH 14.9 % (11.0-15.5)
[2016-05-31 07:36] LABS: WHITE BLOOD COUNT 19.5 X10e3 (4.0-10.5)
[2016-05-31 08:01] LABS: BLOOD UREA NITROGEN 19 mg/dL (9-23); BUN/CREATININE RATIO 27.14; CALCIUM SERUM 8.7 mg/dL (8.4-10.2); CARBON DIOXIDE 26 mmol/L (22-31); CHLORIDE 105 mmol/L (100-111); CREATININE SERUM 0.7 mg/dL (0.6-1.4); GLOM FILT RATE Estimated ABOVE60 mL/min (>60); GLUCOSE FASTING 147 mg/dL (70-110); POTASSIUM 4.7 mmol/L (3.5-5.1); SODIUM 138 mmol/L (135-145)
[2016-05-31 12:17] LABS: CK TOTAL 24 IU/L (36-174)
[2016-05-31 17:42] LABS: CK TOTAL 16 IU/L (36-174)
[2016-06-01 05:56] LABS: HEMATOCRIT 36.4 % (38.0-50.0); HEMOGLOBIN 11.8 gm/dL (13.0-16.0); MEAN CELL VOLUME 85.5 FL (83-96); MEAN CORPUSCULAR HEMOGLOBIN 27.6 PG (28-34); MEAN CORPUSCULAR HGB CONC 32.3 g/dL (30-36); MEAN PLATELET VOLUME 7.2 FL (6.5-11.5); RED BLOOD COUNT 4.26 X10e (3.90-5.60); RED CELL DISTRIBUTION WIDTH 14.9 % (11.0-15.5); WHITE BLOOD COUNT 15.9 X10e3 (4.0-10.5)
[2016-06-01 06:52] LABS: BLOOD UREA NITROGEN 22 mg/dL (9-23); BUN/CREATININE RATIO 36.66; CALCIUM SERUM 8.6 mg/dL (8.4-10.2); CARBON DIOXIDE 29 mmol/L (22-31); CHLORIDE 103 mmol/L (100-111); CHOLESTEROL 149 mg/dL (0-200); CREATININE SERUM 0.6 mg/dL (0.6-1.4); GLOM FILT RATE Estimated ABOVE60 mL/min (>60); GLUCOSE FASTING 137 mg/dL (70-110); HDL CHOLESTEROL 27 mg/dL (29-75); LDL CHOLESTEROL 93 mg/dL (-130); LDL/HDL RATIO 3 RATIO (0-4); POTASSIUM 4.9 mmol/L (3.5-5.1); SODIUM 139 mmol/L (135-145); TRIGLYCERIDES 145 mg/dL (10-160)
[2016-06-02 09:29] LABS: BASOPHIL% 0.1 % (0-2.5); EOSINOPHIL% 0.1 % (0.0-7.0); HEMOGLOBIN 12.5 gm/dL (13.0-16.0); LYMPHOCYTE# 1.1 X10e3 (1.0-3.5); LYMPHOCYTE% 8.3 % (17.0-45.0); MEAN CELL VOLUME 86.5 FL (83-96); MEAN CORPUSCULAR HEMOGLOBIN 27.8 PG (28-34); MEAN CORPUSCULAR HGB CONC 32.1 g/dL (30-36); MEAN PLATELET VOLUME 7.4 FL (6.5-11.5); MONOCYTE# 0.8 X10e3 (0-1.0); MONOCYTE% 6.5 % (3.0-12.0); PLATELET COUNT 407 X10e3 (140-420); RED BLOOD COUNT 4.51 X10e (3.90-5.60)
[2016-06-02 09:33] LABS: DIFF IND YES
[2016-06-02 09:38] LABS: BLOOD UREA NITROGEN 21 mg/dL (9-23); CALCIUM SERUM 8.4 mg/dL (8.4-10.2); CARBON DIOXIDE 29 mmol/L (22-31); CHLORIDE 102 mmol/L (100-111); CREATININE SERUM 0.7 mg/dL (0.6-1.4); GLOM FILT RATE Estimated ABOVE60 mL/min (>60); GLUCOSE FASTING 125 mg/dL (70-110); POTASSIUM 4.4 mmol/L (3.5-5.1); SODIUM 137 mmol/L (135-145)
[2016-06-02 10:45] LABS: PLATELET ESTIMATE NORMAL (NORMAL)
[2016-06-02 10:46] LABS: RBC NORMAL YES
[2016-06-02] MEDS ORDERED: METOPROLOL TAR25 MG PO (15:28)
[2016-06-02] MEDS ORDERED: LISINOPRIL5 MG PO (15:29)
[2016-06-02] MEDS ORDERED: ALDACTONE25 MG PO (15:30)
[2016-06-02] MEDS ORDERED: OMNICEF300 M1 PO (15:33)
[2016-06-02] MEDS ORDERED: SYMBICORT INH (15:34)
[2016-06-02] MEDS ORDERED: ALBUTEROL17 GM INH (15:37)
[2016-06-02] MEDS ORDERED: PREDNISONE10 MG PO ×2 (15:39→15:40)
[2016-06-06 20:45] LABS: ASPERGILLUS FLAVUS Negative (Negative); ASPERGILLUS FUMIGATUS Positive (Negative); ASPERGILLUS NIGER Negative (Negative); BLASTOMYCES ANTIBODY Negative (Negative); COCCIDIODES ANTIBODY Negative (Negative); CRYPTOCOCCAL AB <1:2 (()); CRYPTOCOCCAL AG SCREEN SOURCE Serum (()); CRYPTOCOCCAL SCREEN Not Detected (Not Detected); HISTOPLASMA AB Negative (Negative)
[2016-09-08] MEDS ORDERED: DOXYCYCLINE HY100 M3 PO (11:54)
== END 2016-06-02 15:45 | disposition home or self-care (01) | DRG 190 ==
LOC: CED 09:06 → C3A PCU 15:05
PROVIDERS: Emergency Medicine; Hospitalist; Internal Medicine Pulmonary Disease; Nurse Practitioner
PROC: B32SYZZ Computerized Tomography (CT Scan) of Right Pulmonary Artery using Other Contrast (ICD-10-PCS; 2016-05-29)
PROC: B32TYZZ Computerized Tomography (CT Scan) of Left Pulmonary Artery using Other Contrast (ICD-10-PCS; 2016-05-29)
PROC: B246YZZ Ultrasonography of Right and Left Heart using Other Contrast (ICD-10-PCS; principal; 2016-05-31)
DX: J44.1 Chronic obstructive pulmonary disease with (acute) exacerbation (principal); J18.9 Pneumonia, unspecified organism; J96.90 Respiratory failure, unspecified, unspecified whether with hypoxia or hypercapnia; I47.2 Ventricular tachycardia; J44.0 Chronic obstructive pulmonary disease with (acute) lower respiratory infection; Z88.5 Allergy status to narcotic agent; I25.10 Atherosclerotic heart disease of native coronary artery without angina pectoris; Z95.5 Presence of coronary angioplasty implant and graft; Z87.891 Personal history of nicotine dependence; Z79.82 Long term (current) use of aspirin; Z79.02 Long term (current) use of antithrombotics/antiplatelets; E78.5 Hyperlipidemia, unspecified; I25.5 Ischemic cardiomyopathy; I25.2 Old myocardial infarction; R91.8 Other nonspecific abnormal finding of lung field; G89.29 Other chronic pain; M79.669 Pain in unspecified lower leg
CPT/HCPCS: 36415; 36600; 71010; 71275; 78452; 80048; 80061; 80076; 81003; 82308; 82550; 82553; 82803; 83036; 83735; 84443; 84484; 85025; 85027; 85610; 85730; 86606; 86612; 86631; 86698; 87040; 87070; 87102; 87107; 87116; 87205; 87206; 87305; 87493; 87633; 93005; 93017; 93306; 94640; 94760; 96374; 99285; A9500; J0456; J0696; J1650; J2930; J3475; Q9967

== ENCOUNTER → 2016-09-02 | Outpatient (CLI) | payer MEDICARE ==
[~2016-09-02] MED LIST changes: +ALDACTONE25 MG PO; +ASPIRIN81 MG PO; +AZELASTINE137 MCG/0.; +DOXYCYCLINE HY100 M3 PO; +DULERA 200 MCG/13 GM INH; +FLONASE 0.05% N16 G1; +GLUCOTROL PO; +HYDROCODON-ACE1 EAC5 PO; +LISINOPRIL5 MG PO; +METOPROLOL TAR25 MG PO; +OMNICEF300 M1 PO; +PREDNISONE10 MG PO; +REMERON15 MG PO; +SYMBICORT INH
== END | disposition home or self-care (01) ==
LOC: CLAB 10:50
PROVIDERS: Internal Medicine Pulmonary Disease
DX: J47.1 Bronchiectasis with (acute) exacerbation (principal); J43.9 Emphysema, unspecified
CPT/HCPCS: 87070; 87102; 87106; 87116; 87206

== ENCOUNTER → 2016-09-03 | Outpatient (CLI) | payer MEDICARE | END | disposition home or self-care (01) | LOC: CLAB 11:11 | PROVIDERS: Internal Medicine Pulmonary Disease | DX: J47.1 Bronchiectasis with (acute) exacerbation (principal); J43.9 Emphysema, unspecified | CPT/HCPCS: 87070; 87102; 87106; 87116; 87206 ==

== ENCOUNTER → 2016-09-09 | Outpatient (CLI) | payer MEDICARE ==
[2016-09-09 07:28] LABS: HEMATOCRIT 42.8 % (38.0-50.0); HEMOGLOBIN 13.7 gm/dL (13.0-16.0); MEAN CELL VOLUME 85.2 FL (83-96); MEAN CORPUSCULAR HEMOGLOBIN 27.4 PG (28-34); MEAN CORPUSCULAR HGB CONC 32.1 g/dL (30-36); MEAN PLATELET VOLUME 6.6 FL (6.5-11.5); RED BLOOD COUNT 5.02 X10e (3.90-5.60); WHITE BLOOD COUNT 9.3 X10e3 (4.0-10.5)
[2016-09-09 07:36] LABS: PARTIAL THROMBOPLASTIN TIME 32.4 SECONDS (23.5-31.3); PROTHROMBIN TIME (PATIENT) 10.6 SECONDS (9.6-11.5)
== END | disposition home or self-care (01) ==
LOC: CIVR 06:46
PROVIDERS: Internal Medicine Pulmonary Disease
DX: J47.1 Bronchiectasis with (acute) exacerbation (principal); J43.8 Other emphysema; Z79.01 Long term (current) use of anticoagulants
CPT/HCPCS: 36415; 85027; 85610; 85730; J2250; J3010

== ENCOUNTER → 2016-09-18 | Day surgery (SDC) | payer MEDICARE ==
--- NOTE | ~2016-09-18 | CR71 ---
[facility] A Service of [facility] & [facility] RADIOLOGY TEXT RESULTS PATIENT: PARISH LEES LOCATION: [facility] : 50 UNIT #: [id number] AGE: [address]: Walter Shi MD SEX: M ORDER DR: [id number] [facility] [address] [place], [place] [address] [id number] O MR#: [id number] Acc #: [id number] NAME: PARISH LEES : 1950 SEX: M STUDY DATE/TIME: 09/18/2016 8:57 UNIT: [facility] ROOM: STUDY DESCRIPTION: CR Chest Single View Attending Physician: Poornima Shi M.D. Ordering Physician: Poornima Shi M.D. Primary Care Physician: No Primary Care Physician MEDICAL IMAGING REPORT This report is preliminary unless electronic signature is present EXAM Portable chest. INDICATIONS Post right lung biopsy. COMPARISON 05/29/2016 FINDINGS Patient is status post right lung biopsy without evidence of pneumothorax. There is stable right apical parenchymal density and adjacent fluid or thickening. Stable coarse interstitial opacities elsewhere in the lungs. Heart size stable. IMPRESSION No evidence of pneumothorax post lung biopsy. Dictated by... Yamil Treviño M.D. THIS IS AN ELECTRONICALLY VERIFIED REPORT Yamil Treviño M.D. at 09/18/2016 3:21 PM ARS/elia TD: 09/18/2016 12:46 JOB #: [id number] MEDICAL IMAGING REPORT Page 1 of 1 COPY
--- NOTE | ~2016-09-18 | CT134 ---
[facility] A Service of [facility] RADIOLOGY TEXT RESULTS PATIENT: PARISH LEES LOCATION: [facility] : 50 UNIT #: [id number] AGE: [address]: Walter Shi MD SEX: M ORDER DR: [id number] [address] [address] [id number] O MR#: [id number] Acc #: [id number] NAME: PARISH LEES : 1950 SEX: M STUDY DATE/TIME: 09/18/2016 8:17 UNIT: [facility] ROOM: STUDY DESCRIPTION: CT Guide Ordering Physician: Poornima Shi M.D. MEDICAL IMAGING REPORT This report is preliminary unless electronic signature is present EXAM CT-guided biopsy of the right upper lobe lung mass HISTORY PET positive right upper lobe mass. PROCEDURE Procedure, attendant risks and options were discussed with the patient. He understands and wishes to proceed. Informed consent was obtained. The patient was placed in the right lateral decubitus position. Conscious sedation was administered consisting of IV Versed and fentanyl. An appropriate site was chosen. Skin was marked, prepped and draped. From a posterior approach, a 17-gauge guide needle was inserted into the chest and the PET positive areas were biopsied utilizing an 18-gauge core needle. Needle was removed, hemostasis achieved. Follow-up chest radiograph shows no pneumothorax. Procedure was very well tolerated. CONCLUSION Successful CT-guided biopsy of the patient's right upper lobe lung mass under conscious sedation. Dictated by... Kyler Rosado M.D. THIS IS AN ELECTRONICALLY VERIFIED REPORT Kyler Rosado M.D. at 09/20/2016 9:32 AM SUDHEER/les TD: 09/18/2016 20:54 JOB #: [id number] MEDICAL IMAGING REPORT [facility] A Service [facility] RADIOLOGY TEXT RESULTS PATIENT: PARISH LEES LOCATION: [facility] : 50 UNIT #: [id number] AGE: [address]: Walter Shi MD SEX: M ORDER DR: Page 1 of 1 COPY
--- NOTE | ~2016-09-18 | CR71 ---
[facility] A Service of [facility] RADIOLOGY TEXT RESULTS PATIENT: PARISH LEES LOCATION: [facility] : 50 UNIT #: [id number] AGE: [address]: Walter Shi MD SEX: M ORDER DR: [id number] [facility] [address] [place], [place] [address] [id number] O MR#: [id number] Acc #: [id number] NAME: PARISH LEES : 1950 SEX: M STUDY DATE/TIME: 09/18/2016 10:49 UNIT: [facility] ROOM: STUDY DESCRIPTION: CR Chest Single View Attending Physician: Poornima Shi M.D. Ordering Physician: Poornima Shi M.D. Primary Care Physician: No Primary Care Physician MEDICAL IMAGING REPORT This report is preliminary unless electronic signature is present EXAMINATION AP portable chest. DATE 09/18/2016 at 10:49. HISTORY 66-year-old male is status post CT guided lung biopsy today. COMPARISON AP portable chest, 09/18/2016 at 08:57, CT-guided lung mass biopsy 09/18/2016 at 08:17, AP portable chest 06/18/2016. FINDINGS Right apical pleural parenchymal thickening is unchanged compared to earlier today. No post-biopsy pneumothorax is seen. Advanced emphysematous changes are present with chronic-appearing interstitial scarring or fibrosis in the bases. Stable mild cardiac enlargement. IMPRESSION 1. No evidence of pneumothorax, status post CT-guided lung biopsy earlier today. Dictated by... Sapna Melara M.D. THIS IS AN ELECTRONICALLY VERIFIED REPORT Sapna Melara M.D. at 09/19/2016 8:33 AM CARSON/cesar TD: 09/18/2016 17:02 JOB #: [id number] [facility] A Service [facility] RADIOLOGY TEXT RESULTS PATIENT: PARISH LEES LOCATION: [facility] : 50 UNIT #: [id number] AGE: [address]: Walter Shi MD SEX: M ORDER DR: MEDICAL IMAGING REPORT Page 1 of 1 COPY
[2016-09-18 06:48] LABS: HEMATOCRIT 43.6 % (38.0-50.0); HEMOGLOBIN 14.1 gm/dL (13.0-16.0); MEAN CELL VOLUME 85.2 FL (83-96); MEAN CORPUSCULAR HEMOGLOBIN 27.5 PG (28-34); MEAN CORPUSCULAR HGB CONC 32.3 g/dL (30-36); MEAN PLATELET VOLUME 6.6 FL (6.5-11.5); RED BLOOD COUNT 5.11 X10e (3.90-5.60); RED CELL DISTRIBUTION WIDTH 17.6 % (11.0-15.5); WHITE BLOOD COUNT 8.4 X10e3 (4.0-10.5)
[2016-09-18 07:02] LABS: PARTIAL THROMBOPLASTIN TIME 32.8 SECONDS (23.5-31.3); PROTHROMBIN TIME (PATIENT) 10.7 SECONDS (10.0-11.7)
== END | disposition home or self-care (01) ==
LOC: CLAB 06:20
PROVIDERS: Internal Medicine Pulmonary Disease
DX: J47.1 Bronchiectasis with (acute) exacerbation (principal); J43.9 Emphysema, unspecified; Z98.890 Other specified postprocedural states
CPT/HCPCS: 36415; 71010; 77012; 85027; 85610; 85730; 88305; 88312; J2250; J3010

== ENCOUNTER 2016-11-18 06:27 | Inpatient (IN) | payer MEDICARE ==
[~2016-11-18] VITALS: Ht 182.9 cm; Wt 80.8 kg
--- NOTE | ~2016-11-18 | OR ---
Unit #: [id number] #: [id number] Patient: PARISH LEES [id number] [id number] [facility]. [place], [place] [address] [id number] I MR#: [id number] NAME: PARISH LEES ROOM: 303 Date of Procedure: 11/18/2016 Admission Date: 11/19/2016 Surgeon: Poornima Shi M.D. : 1950 Attending Physician: Poornima Shi M.D. Primary Care Physician: Jaguar Toledo M.D. OPERATIVE REPORT PROCEDURES PERFORMED Bronchoscopy, bronchoalveolar lavage right upper lobe, and apical segment right upper lobe. ANESTHESIA Per Anesthesiology, then we were doing 1% Xylocaine, benzocaine spray. DESCRIPTION OF PROCEDURE After obtaining informed consent, bronchoscope was passed oropharyngeally through a bite block. Propofol was given by Anesthesia. The vocal cords seemed symmetrical. There was no evidence of any vocal cord lesions. Bronchoscope was passed through the vocal cords into the trachea, which was somewhat tortuous. It had hypertrophy of the bronchial rings and had hypertrophy of blood vessels. There were some scant thick viscid clear nonpurulent secretions. Bronchoscope was passed into the right upper, right middle, right lower, left upper, left lingular, and left lower lobe. There was evidence of significant chronic bronchitis in all subsegments. There was pitting. There was easy collapsibility of the airway. There was hypertrophy of the mucosa. There was hypertrophy of the bronchial rings. The bronchoscope was then passed into the right upper lobe, 90 mL of sterile non- bacteriostatic saline was introduced into the anterior subsegment. Approximately, 120 mL was introduced into the right upper lobe anterior segment returned. Approximately, 90 mL introduced into the apical subsegment and approximately 30 mL was returned. The fluid was heme-tinged. This was due to easy bruising and oozing from the airways. The return did not seem particularly bloody. There was no evidence of purulence and the fluid did foam. The patient tolerated the procedure well. There was no acute complications and no significant limitations. Two bronchoalveolar lavages to be sent off for galactomannan and culture. Thank you very much. Please call me at #[phone] if you have any questions. Dictated by... Alayna Ornelas/april TD: 11/18/2016 15:50 JOB #: [id number] Unit #: [id number] #: [id number] Patient: PARISH LEES OPERATIVE REPORT Page 1 of 1 X Walter Shi MD X PROCEDURE OPERATIVE NOTE
--- NOTE | ~2016-11-18 | CR72 ---
[facility] A Service of [facility] RADIOLOGY TEXT RESULTS PATIENT: PARISH LEES LOCATION: [facility] : 50 UNIT #: [id number] AGE: [address]: Walter Shi MD SEX: M ORDER DR: [id number] [id number] [facility]. [place], [place] [address] [id number] I MR#: [id number] Acc #: [id number] NAME: PARISH LEES : 1950 SEX: M STUDY DATE/TIME: 11/18/2016 16:13 [facility] STUDY DESCRIPTION: CR Chest Single View Portable Attending Physician: Poornima Shi M.D. Ordering Physician: Poornima Shi M.D. Primary Care Physician: Jaguar Toledo M.D. MEDICAL IMAGING REPORT This report is preliminary unless electronic signature is present EXAM Portable chest INDICATIONS Shortness of breath and cough today. Hemoptysis today. COMPARISON STUDIES 09/18/2016 FINDINGS New patchy airspace infiltrates within the left lung and also in the right base. This may represent pneumonia or could be an alveolar hemorrhage given the patient's history of hemoptysis. Correlate clinically. Stable scarring and pleural fluid/thickening in the right apex region. Heart size stable. IMPRESSION New alveolar opacities in the left lung in the right base. This may represent pneumonia or could be alveolar hemorrhage given the patient's history of hemoptysis. Dictated by... Yamil Treviño M.D. THIS IS AN ELECTRONICALLY VERIFIED REPORT Yamil Treviño M.D. at 11/19/2016 7:34 AM KRISTA/peyman TD: 11/19/2016 05:28 JOB #: [id number] [facility] A Service of [facility] RADIOLOGY TEXT RESULTS PATIENT: PARISH LEES LOCATION: [facility] : 50 UNIT #: [id number] AGE: [address]: Walter Shi MD SEX: M ORDER DR: MEDICAL IMAGING REPORT Page 1 of 1 COPY
--- NOTE | ~2016-11-18 | DS ---
Unit #: [id number] #: [id number] Patient: PARISH LEES [id number] [address] [address] [id number] I MR#: [id number] NAME: PARISH LEES ROOM: 303 Age: 66 Sex: M Admission Date: 11/19/2016 : 1950 Discharge Date: 11/25/2016 Attending Physician: Poornima Shi M.D. Primary Care Physician: Jaguar Toledo M.D. DISCHARGE SUMMARY DISCHARGE DIAGNOSES 1. Chronic obstructive pulmonary disease exacerbation. 2. Right upper lobe infiltrate, questionable pneumonia. 3. 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 Negative for galactomannan, coronavirus, pneumonia, O43 infection. HISTORY OF PRESENT ILLNESS The patient is a 66-year-old gentleman with a history of coronary artery disease and a cavitary lesion of the left upper lobe. Patient has had a bronchoscopy. This was negative. Patient then had CT guided FNA which showed no evidence of cancer; however, there was evidence of aspergillosis to determine if this is a aspergilloma or invasive aspergillosis. A BAL is performed. There was low levels of galactomannan in the BAL; however, patient became hypoxic post procedure, became progressively short of breath. He has continued to have some sort of hemoptysis. Therefore, he is admitted to the floor. HOSPITAL COURSE Hemoptysis: Patient continued to have hemoptysis throughout the hospital course. The patient had a chest x-ray which showed increasing infiltrate in the right upper lobe. Therefore, patient was started on doxycycline and cefepime. These will be continued with Omnicef for four days after discharge. He was on 6 L initially, then decreased down to 2 L on discharge. Patient had a run of tachycardia. Cardiology was called here. He has chronic systolic heart failure with ejection fraction of 30% to 35%. Patient had guawwxhh-vm-afjgca MR. Therefore, the patient was seen by cardiology, was placed on blood pressure meds, as well as, antiarrhythmics for three months before decision whether or not to place a pacemaker. The patient had a period of low-grade fevers. Respiratory viral panel showed coronavirus. Otherwise, we have not had any positive cultures. DISCHARGE MEDICATIONS 1. Ventolin two puffs t.i.d. as needed for shortness of air. 2. Symbicort 160/4.5 two puffs b.i.d. 3. Flonase nasal spray one spray each nostril twice a day. 4. Mirtazapine 15 mg at bedtime. 5. Omnicef 300 mg p.o. b.i.d. for four days. 6. Doxycycline 100 mg p.o. b.i.d. for four days. 7. Metoprolol 25 mg twice daily. 8. Atorvastatin 20 mg at bedtime. 9. Lisinopril 5 mg twice daily. 10. Aspirin 81 mg in the morning. Unit #: [id number] #: [id number] Patient: PARISH LEES 11. Aldactone 25 mg in the morning. FOLLOWUP 1. Patient is to follow with cardiology in about a month, Dr. King's group. 2. Followup with Dr. Vogt as needed. 3. Followup with our office in approximately three weeks. Dictated by... Alayna Ornelas TD: 11/26/2016 11:28 JOB #: [id number] DISCHARGE SUMMARY Page 1 of 1 X Walter Shi MD X DISCHARGE SUMMARY
--- NOTE | ~2016-11-18 | CO ---
Unit #: [id number] #: [id number] Patient: TIN LEES [id number] [facility] [address] [place], [place] [address] [id number] I MR#: [id number] NAME: TIN LEES ROOM: 303 Age: 66 Sex: M Admission Date: 11/19/2016 : 1950 Attending Physician: Walter Shi Primary Care Physician: Jaguar Toledo M.D. CONSULTATION REPORT REASON FOR CONSULTATION Depression. HISTORY OF PRESENT ILLNESS Mr. Tin Lees is a 66-year-old white male seen in room 303, bed 1 on 11/20/2016 at [facility]. The patient reported that he has been suffering from depression for long time. The patient reports tried different medications but still feeling sad, depressed, feeling of hopelessness, worthlessness, anxiety, trouble sleeping. Decreased appetite, but denied any suicidal or homicidal ideation. Denied any psychotic symptom. The patient denied any use of any drugs or alcohol. The patient's vital signs: 97.9, 101, 18, 115/73. Oxygen saturation 95%. PAST PSYCHIATRIC HISTORY Remarkable for history of depression, history of outpatient treatment. No history of any suicide attempt. PAST MEDICAL HISTORY 1. History of COPD. 2. History of myocardial infarction in 2006. 3. Hyperlipidemia. MEDICATION The patient is on Lipitor, Astelin, Lopressor, Zestril, and Plavix. FAMILY HISTORY The patient reported that he has a good support system. No history of abuse. Denied any use of any drugs or alcohol. REVIEW OF SYSTEMS The patient's vital signs: 97.9, 101, 18, 115/73. Oxygen saturation 95%. Complete review of systems: Unremarkable. MENTAL STATUS EXAMINATION General Appearance: The patient dressed casually, lying comfortably in bed. The patient receiving oxygen through nasal cannula. Attention span, concentration: Fair. Speech: Regular rate, coherent. Oriented in time, place, and person. Mood and affect: Sad, dysphoric. Thought process: Coherent. Thought content: The patient denied any thoughts of harming self or others or any hallucination but sad, depressed. Recent and remote memory: Fair. Language: Intact. Fund of knowledge: Fair. Insight and judgment: Fair to slightly impaired. Unit #: [id number] #: [id number] Patient: TIN LEES DIAGNOSIS PSYCHIATRIC: Major depressive disorder, recurrent, severe, F33.2. SECONDARY: Deferred. MEDICAL: Please refer to H and P. STRESSOR: Psychosocial stressor. ASSESSMENT/PLAN 1. Supportive psychotherapy, psychoeducation provided to the patient. 2. Educated about benefits and side effects of medication and course and prognosis of illness 3. Advised to start the patient on Remeron 15 mg at bedtime. If needed, consider further adjustment of medication. Please feel free to call if any question. . Dictated by... Alayna Pichardo/thao TD: 11/21/2016 09:49 JOB #: [id number] CONSULTATION REPORT Page 1 of 1 X Jose Vogt MD X CONSULTATION REPORT
--- NOTE | ~2016-11-18 | EKG ---
PATIENT: PARISH LEES UNIT #: [id number] Ventricular Rate: 86 BPM Atrial Rate: 86 BPM P-R Interval: 156 ms QRS Duration: 112 ms Q-T Interval: 398 ms QTC Calculation(Bezet): 476 ms P Rosamond: 55 degrees Calculated R Rosamond: -65 degrees Calculated T Rosamond: 18 degrees Diagnosis Line: Normal sinus rhythm Diagnosis Line: Left anterior fascicular block Diagnosis Line: Consider prior Inferior infarct , age Diagnosis Line: undetermined Diagnosis Line: Abnormal ECG Diagnosis Line: When compared with ECG of 31-MAY-2016 03:50, Diagnosis Line: T wave inversion no longer evident in Inferior Diagnosis Line: leads Diagnosis Line: Confirmed by HUGO MEJIAS MD ([id number]) on Diagnosis Line: 11/24/2016 4:59:05 PM INTERPRETING MD: GARETH
--- NOTE | ~2016-11-18 | CO ---
Unit #: [id number] #: [id number] Patient: TIN LEES [id number] [address] [address] [id number] I MR#: [id number] NAME: TIN LEES ROOM: 303 Age: 66 Sex: M Admission Date: 11/19/2016 : 1950 Attending Physician: Poornima Shi M.D. Primary Care Physician: Jaguar Toledo M.D. Consultation Date: 11/21/2016 CONSULTATION REPORT REASON FOR CONSULTATION Followup. DISCUSSION Mr. Tin Lees is a 66-year-old white male seen in room 303, bed 1 on 11/21/2016. The patient reports that he started taking Remeron but not feeling much difference. Patient started feeling sad, depressed, and anxious. Denied any suicidal or homicidal ideation. Denied any psychotic symptoms. The patient's vital signs are 100.4, 82, 18, 123/81, oxygen saturation 96%. REVIEW OF SYSTEMS A complete review of systems is unremarkable. MENTAL STATUS EXAMINATION General appearance: Patient dressed casually in hospital attire, lying comfortably in bed. Attention span and concentration fair. Speech: Regular rate, coherent. Oriented in time, place, and person. Mood and affect sad, dysphoric. Thought process coherent. Thought content: The patient denied any thoughts of harming self or others but still reporting feeling sad, depressed, feeling of hopelessness. Recent and remote memory fair. Language intact. Fund of knowledge fair. Insight and judgment fair to slightly impaired. DIAGNOSIS Major depressive disorder, recurrent, severe, F33.2. SECONDARY DIAGNOSIS: Deferred. MEDICAL DIAGNOSIS: Please refer to history and physical. STRESSORS: Psychosocial stressors. ASSESSMENT AND PLAN 1. Supportive psychotherapy and psychoeducation provided to patient. 2. Educated about benefits and side effects of medication and course and prognosis of illness. 3. Advised to continue with Remeron 15 mg at bedtime. If needed, consider further adjustment of medication. Would like to give a few more days before adjusting the dosage. Please feel free to call if any questions, . Unit #: [id number] #: [id number] Patient: TIN LEES Dictated by... Alayna PichardoC/ch TD: 11/23/2016 13:13 JOB #: [id number] CONSULTATION REPORT Page 1 of 1 X Jose Vogt MD CONSULTATION REPORT
--- NOTE | ~2016-11-18 | CT57 ---
[facility] A Service of [facility] RADIOLOGY TEXT RESULTS PATIENT: PARISH LEES LOCATION: [facility] 303- : 50 UNIT #: [id number] AGE: [address]: Walter Shi MD SEX: M ORDER DR: [id number] [facility]. [place], [place] [address] [id number] I MR#: [id number] Acc #: [id number] NAME: PARISH LEES : 1950 SEX: M STUDY DATE/TIME: 11/22/2016 12:20 UNIT: C3A PCU ROOM: [facility] STUDY DESCRIPTION: CT Chest Wo Cont Attending Physician: Walter Shi Ordering Physician: Poornima Shi M.D. Primary Care Physician: Jaguar Toledo M.D. MEDICAL IMAGING REPORT This report is preliminary unless electronic signature is present EXAM High-resolution CT chest HISTORY Low oxygen saturation. Hemoptysis for 2 days. COPD. FINDINGS High-resolution CT chest without contrast is compared to chest CT 11/02/2013. This CT exam was performed with one or more of the following radiation dose reduction techniques: automatic exposure control, adjustment of mA and/or kV according to patient size, and iterative reconstruction. There is extensive diffuse bilateral emphysema, with interval progression since the prior CT. Moderate diffuse nodularity in the lateral left upper lobe and in the lateral and posterolateral left lower lobe, likely stable compared to the prior study. Mild diffuse nodularity in the right upper lobe is also similar to the prior CT. Bronchiectasis and atelectasis in the right upper lobe, with interval decrease in size of the right apical lung cyst since the prior study. Progressive and extensive interstitial prominence in the bilateral lower lobes, with superimposed ground-glass infiltrates. Findings are likely secondary to progressive interstitial fibrotic scarring bilaterally and nonspecific alveolitis in the bilateral lower lobes. No pleural effusions. Stable right upper mediastinal adenopathy with nodes measuring up to 1.8 cm. IMPRESSION 1. Progressive diffuse bilateral emphysema and progressive diffuse interstitial fibrotic scarring in both lungs, as compared to CT 11/02/2013. 2. Stable subcentimeter nodularity, primarily in the left upper and left STS. [facility] A Service of [facility] RADIOLOGY TEXT RESULTS PATIENT: PARISH LEES LOCATION: A 303-01 : [birth year] UNIT #: [id number] AGE: [address]: Walter Shi MD SEX: M ORDER DR: lower lobes and to a lesser degree in the right upper lung. These are likely granulomas given their stability. 3. New extensive ground-glass infiltrates in the bilateral lower lobes could be secondary to nonspecific alveolitis. 4. Stable extensive bronchiectasis and atelectasis throughout the right upper lobe with interval decrease in size of the right apical lung cavity. Associated pleural thickening in the right lung apex is similar to the prior CT. 5. Stable right upper mediastinal adenopathy. Dictated by... Bear Zavala M.D. THIS IS AN ELECTRONICALLY VERIFIED REPORT Bear Zavala M.D. at 11/24/2016 4:43 AM JACKELINE/brayden TD: 11/23/2016 22:23 JOB #: [id number] MEDICAL IMAGING REPORT Page 1 of 1 COPY
--- NOTE | ~2016-11-18 | US84 ---
[id number] [facility] [address] [facility]. [place], [place] [address] [id number] I MR#: [id number] Acc #: [id number] NAME: PARISH LEES : 1950 SEX: M STUDY DATE/TIME: 11/22/2016 18:47 UNIT: C3A PCU ROOM: 303 STUDY DESCRIPTION: US LE Veins Complete Alejandro Stdy Attending Physician: Poornima Shi M.D. Ordering Physician: Poornima Shi M.D. Primary Care Physician: Jaguar Toledo M.D. MEDICAL IMAGING REPORT This report is preliminary unless electronic signature is present EXAM Bilateral lower extremity venous ultrasound. HISTORY Shortness of air for 5 days. Elevated D-dimer. TECHNIQUE Venous ultrasound examination of both lower extremities was performed using grayscale, spectral Doppler and color flow Doppler imaging. FINDINGS The examination is negative. There is no evidence of deep venous thrombus from the groin to the lower calf bilaterally. Visualized greater saphenous veins are also patent. IMPRESSION Negative examination. No evidence of lower extremity deep venous thrombosis. Dictated by... Bear Zavala M.D. THIS IS AN ELECTRONICALLY VERIFIED REPORT Bear Zavala M.D. at 11/24/2016 4:43 AM JACKELINE/fadia TD: 11/23/2016 22:02 JOB #: [id number] MEDICAL IMAGING REPORT Page 1 of 1 COPY
--- NOTE | ~2016-11-18 | CO ---
Unit #: [id number] #: [id number] Patient: PARISH LEES [id number] [facility]. [place], [place] [address] [id number] I MR#: [id number] NAME: PARISH LEES ROOM: 303 Age: 66 Sex: M Admission Date: 11/19/2016 : 1950 Attending Physician: Walter Shi Primary Care Physician: Jaguar Toledo M.D. Consultation Date: 11/23/2016 CONSULTATION REPORT REASON FOR CONSULT Cardiomyopathy and severe MR. HISTORY OF PRESENT ILLNESS The patient is a 66-year-old male, who has a history of ND in 2006 and had stents placed at that time. He then ensued sequence stenting in 2014 after an abnormal stress test at [facility], those details are not available. We saw the patient here at [facility] for nonsustained VT in May of this year. The patient underwent another stress test that showed an old inferior wall ND, but no stress-induced ischemia and a cardiomyopathy with EF of 30% to 35%. Here, there was also question of a right upper lobe with malignancy. The patient tells me he was believed to be in August of this year, he had another culture of the sputum that showed Aspergillus. The patient now had followed up in the office with in three months, which was November 28. He was supposed to have a repeat echocardiogram to recesses his LV function. The patient was admitted here at [facility] for hemoptysis and dyspnea with exertion. He has no chest pain, pressure, or tightness. The patient has not had any palpitations and no episodes of syncope. He is coughing up a dark red sputum while I am in the room. He has had no lower extremity edema and has no orthopnea. The patient had an echocardiogram done yesterday that was technically difficult. The left ventricular systolic function was moderate to severely reduced with EF of 25% to 30%. There was sywmqmnx-yn-vskdqx mitral valve regurgitation. Mild tricuspid valve regurgitation. No effusion was noted. RVSP is 19.79 mmHg. PAST MEDICAL HISTORY Significant for coronary artery disease, details unknown of catheterization and stenting, but ND in 2006, received stents. Abnormal stress test in June 2014 and received stents; nonsustained VT. 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 SOCIAL HISTORY The patient is an ex-smoker. No alcohol or drug abuse. He does admit to not taking his medications regularly. DIAGNOSTIC DATA Sinus rhythm on monitor. EKG, pending. Chest x-ray shows parenchymal scarring of the right upper lobe in the right lung apex, and chronic interstitial opacities. Sodium 140, potassium 4.8, chloride 104, CO2 of 26, BUN 18, creatinine 0.8, and glucose 100. White blood cell count 8.6, Unit #: [id number] #: [id number] Patient: PARISH LEES hemoglobin 12.9, hematocrit 38.8, and platelet count 304. ALLERGIES Codeine. HOME MEDICATIONS Plavix 75 mg daily, aspirin 81 mg every morning, Lipitor 20 mg at bedtime, metoprolol tartrate 25 mg b.i.d., lisinopril 5 mg daily, Aldactone 25 mg daily, Symbicort 160/4.5 mcg two puffs daily, and Ventolin 2 puffs three times a day. REVIEW OF SYSTEMS Complains of dyspnea on exertion and blood tinged sputum. No fever, chills, nausea, vomiting, diarrhea, headache, changes in visual field, chest pain, pressure, tightness, or loss of consciousness. All other review of systems is negative. PHYSICAL EXAMINATION GENERAL: The patient is awake, and alert, oriented x3. No acute distress. No focal motor or sensory deficits. VITAL SIGNS: Temperature 99.1, heart rate 88, and blood pressure 110/68. HEENT: Normal carotid upstrokes. No auscultated bruit. Negative JVD. Lying supine. Negative hepatojugular reflux. CHEST: Respirations are regular and unlabored at rest. Rhonchi in the right lung base. No other rales or wheezes are heard. HEART: S1 and S2. Regular rate and rhythm. S3 gallop. No murmurs, or rubs are heard. ABDOMEN: Soft, nontender, and nondistended. Positive bowel sounds in all 4 quadrants. No ascites noted. EXTREMITIES: Moves all extremities. No deformities noted. No edema. DP/PT pulses are 2+. Capillary refill, less than 3 seconds. IMPRESSION 1. Ischemic cardiomyopathy. Ejection fraction of 30% to 35%. 2. History of coronary artery disease. 3. Chronic systolic heart failure, appears euvolemic. 4. History of nonsustained ventricular tachycardia, 36 beats in May of this year. 5. Chronic obstructive pulmonary disease. 6. Hyperlipidemia. 7. History of tobacco use. 8. History of questionable right upper lobe fungal infection that was negative for malignancy. PLAN We will continue with cardiomyopathy medications. I discussed with him the need to be compliant with his medications at home to see if his LV function improves and to see if he needs a defibrillator; however, his LV function is still down and he has a history of ventricular arrhythmias, may qualify for one now. Okay for bronchoscopy and we will us assess his need for ICD once his lung issues have been resolved. His stents were over two years ago. We will go ahead and stop the Plavix since he is having some hemoptysis and can continue aspirin only. We will restart home dose of Aldactone. Further recommendations pending hospital course. Dictated by... Unit #: [id number] #: [id number] Patient: PARISH LEES APRN LR/april TD: 11/25/2016 03:21 JOB #: [id number] CONSULTATION REPORT Page 1 of 1 X X CONSULTATION REPORT
--- NOTE | ~2016-11-18 | HP ---
Unit #: [id number] #: [id number] Patient: PARISH LEES [id number] [address] [place], [place] [address] [id number] I MR#: [id number] NAME: PARISH LEES ROOM: 303 Age: 66 Sex: M Admission Date: 11/19/2016 : 1950 Attending Physician: Poornima Shi M.D. Primary Care Physician: Jaguar Toledo M.D. HISTORY AND PHYSICAL HISTORY OF PRESENT ILLNESS This is Jose Lees, a 66-year-old gentleman with a history of COPD and fibrosis in right upper lobe. Patient biopsy showing scarring aspergillosis. Patient was brought in for an outpatient bronchoscopy and bronchoscopy proceeded fairly normally with the patient desaturating during the procedure; however, afterwards the patient continued to require a significant amount of oxygen. This was weaned down to about 6 L of oxygen and therefore patient was admitted to the floor for close observation. PAST MEDICAL HISTORY The past medical history is significant for: 1. COPD. 2. ECCILIA which was treated with antibiotics. The patient has been off them for about one year. 3. History of coronary artery disease. ALLERGIES Codeine. HOME MEDICATIONS Home medications include: 1. Plavix 75 mg p.o. daily. 2. Aspirin 81 mg o daily. 3. Lipitor 20 mg p.o. daily. 4. Metoprolol 25 mg b.i.d. 5. Lisinopril 5 mg q.a.m. 6. Aldactone 25 mg p.o. daily. 7. Symbicort 160 mg p.o. b.i.d. 8. Ventolin two puffs t.i.d. SOCIAL HISTORY Patient is a former smoker; quit smoking approximately four years ago. FAMILY HISTORY Family history is noncontributory for respiratory illnesses. REVIEW OF SYSTEMS Review of systems is negative except for as mentioned in the HPI. PHYSICAL EXAMINATION VITAL SIGNS: T-current is 95.9, pulse 80, respiratory 18, blood pressure 1 /50. Unit #: [id number] #: [id number] Patient: PARISH LEES CHEST: Shows decreased breath sounds bilaterally. CARDIOVASCULAR EXAM: Regular rate. No gallop. ABDOMEN: The abdomen is soft, nontender, nondistended. EXTREMITIES: Show no edema of edema. ASSESSMENT AND PLAN 1. Hypoxia. 2. Severe chronic obstructive pulmonary disease. 3. Right upper lobe infiltrate, rule out pneumonia. Dictated by Alayna Ornelas/lynnette TD: 11/21/2016 22:42 JOB #: [id number] HISTORY AND PHYSICAL Page 1 of 1 X Walter Shi MD X HISTORY AND PHYSICAL
--- NOTE | ~2016-11-18 | CR72 ---
[facility] A Service of [facility] RADIOLOGY TEXT RESULTS PATIENT: PARISH LEES LOCATION: [facility] 303- : 50 UNIT #: [id number] AGE: [address]: Walter Shi MD SEX: M ORDER DR: [id number] [facility] [address] [facility]. [place], [place] [address] [id number] I MR#: [id number] Acc #: [id number] NAME: PARISH LEES : 1950 SEX: M STUDY DATE/TIME: 11/21/2016 5:55 UNIT: [address] ROOM: [facility] STUDY DESCRIPTION: CR Chest Single View Portable Attending Physician: Walter Shi Ordering Physician: Poornima Shi M.D. Primary Care Physician: Jaguar Toledo M.D. MEDICAL IMAGING REPORT This report is preliminary unless electronic signature is present EXAM Single view chest INDICATION Shortness of air. Hemoptysis. FINDINGS Single portable AP view chest compared to 11/18/2016 and 09/18/2016. Heart and mediastinal contours are unchanged. Parenchymal scarring in the right upper lobe/right lung apex similar to the prior study. There is chronic interstitial opacities in both lungs. No pneumothorax. IMPRESSION No interval change. Dictated by... Isaac Lucas M.D. THIS IS AN ELECTRONICALLY VERIFIED REPORT Isaac Lucas M.D. at 11/21/2016 2:52 PM RPC/mark TD: 11/21/2016 14:43 JOB #: [id number] MEDICAL IMAGING REPORT Page 1 of 1 COPY
--- NOTE | ~2016-11-18 | US139 ---
[facility] A Service of [facility] RADIOLOGY TEXT RESULTS PATIENT: PARISH LEES LOCATION: [facility] : 50 UNIT #: [id number] AGE: [address]: Walter Shi MD SEX: M ORDER DR: [id number] [facility] [address] [facility]. [place], [place] [address] [id number] MR#: [id number] Acc #: [id number] NAME: PARISH LEES : 1950 SEX: M STUDY DATE/TIME: 11/22/2016 19:11 UNIT: [address] ROOM: [facility] STUDY DESCRIPTION: US UE Veins Complete Alejandro Stdy Attending Physician: Poornima Shi M.D. Ordering Physician: Poornima Shi M.D. Primary Care Physician: Jaguar Toledo M.D. MEDICAL IMAGING REPORT This report is preliminary unless electronic signature is present EXAM Bilateral upper extremity venous duplex ultrasound, 11/22/2016. HISTORY 66-year-old male with shortness of breath for 5 days. Elevated D-dimer. COMPARISON None FINDINGS Real time montesinos-scale, color Doppler, and spectral Doppler analysis of bilateral upper extremity deep venous systems demonstrates normal venous waveforms with normal compressibility and augmentation where applicable. No evidence of bilateral upper extremity deep venous thrombosis. Incidental note of superficial thrombosis in the proximal right basilic vein. IMPRESSION 1. Negative for bilateral upper extremity DVT. 2. Superficial thrombosis incidentally noted in the proximal right basilic vein. Dictated by... Jeyson Paulino M.D. THIS IS AN ELECTRONICALLY VERIFIED REPORT Jeyson Paulino M.D. at 11/24/2016 3:08 PM JOHN PAUL/fadia TD: 11/23/2016 22:21 JOB #: [id number] [facility] A Service of [facility] RADIOLOGY TEXT RESULTS PATIENT: PARISH LEES LOCATION: [facility] : 50 UNIT #: [id number] AGE: [address]: Walter Shi MD SEX: M ORDER DR: MEDICAL IMAGING REPORT Page 1 of 1 COPY
--- NOTE | ~2016-11-18 | CO ---
Unit #: [id number] #: [id number] Patient: TIN LEES [id number] [address] [address] [id number] MR#: [id number] NAME: TIN LEES ROOM: 303 Age: 66 Sex: M Admission Date: 11/19/2016 : 1950 Attending Physician: Walter Shi Primary Care Physician: Jaguar Toledo M.D. Consultation Date: 11/23/2016 CONSULTATION REPORT DISCUSSION Mr. Tin Lees is a 66-year-old male, seen on 11/23/2016 in room 303, bed 1. The patient dressed casually, lying comfortably in bed. The patient reports able to sleep good. Reports mood is getting better. Denied any suicidal or homicidal ideation. Denied any psychotic symptom. No side effects from medication. The patient's vital signs; temperature 97.9, pulse rate 91, respiratory rate 18, blood pressure 102/71, and oxygen saturation 95%. REVIEW OF SYSTEMS Complete review of system unremarkable. MENTAL STATUS EXAMINATION General appearance; the patient dressed casually, lying comfortably in bed. Attention span and concentration, fair. Speech, regular rate and coherent. Oriented in time, place, and person. Mood and affect; sad, dysphoric, but able to smile. Thought process, coherent. Thought content, the patient denied any thoughts of harming self or others. Recent and remote memory, fair. Language, intact. Fund of knowledge, fair. Insight and judgment, fair to slightly impaired. DIAGNOSIS Psychiatric: Major depressive disorder, recurrent, severe, F33.2. ASSESSMENT/PLAN 1. Supportive psychotherapy and psychoeducation provided to the patient. 2. Educated about benefits and side effects of medication and course and prognosis of illness. 3. Advised to continue with current medication. If needed, consider further adjustment of medication. Please feel free to call if any questions, telephone #[phone]. Dictated by..Alayna Madrid/april TD: 11/24/2016 09:54 JOB #: [id number] Unit #: [id number] #: [id number] Patient: TIN LEES CONSULTATION REPORT Page 1 of 1 X Jose Vogt MD CONSULTATION REPORT
[~2016-11-18 06:27] MED LIST changes: -AZELASTINE137 MCG/0.; -DULERA 200 MCG/13 GM INH; -FLONASE 0.05% N16 G1; -GLUCOTROL PO; -REMERON15 MG PO
[2016-11-18 10:29] LABS: BF TOTAL NUCLEATED CELL COUNT 568 CMM (0-100); BODY FLUID APPEARANCE BLOODY
[2016-11-18 10:30] LABS: BODY FLUID RBC 48703 CMM
[2016-11-18 10:32] LABS: BODY FLUID SOURCE BRONCHIAL LAVAGE
[2016-11-18 10:41] LABS: BF TOTAL NUCLEATED CELL COUNT 714 CMM (0-100); BODY FLUID APPEARANCE BLOODY; BODY FLUID RBC 15256 CMM
[2016-11-18 10:42] LABS: BODY FLUID SOURCE BRONCHIAL LAVAGE
[2016-11-18 11:43] LABS: ARTERIAL BLD GAS O2 SATURATION 78.3 % (90.0-100.0); ARTERIAL BLOOD GAS CARBOXY HB 0.9 %sat (0.0-9.0); ARTERIAL BLOOD GAS HCO3 25.2 mmol/L; ARTERIAL BLOOD GAS MET HB 0.5 %sat (0.0-2.0); ARTERIAL BLOOD GAS PCO2 31.5 mmHg (35.0-45.0); ARTERIAL BLOOD GAS pH 7.511 (7.350-7.450)
[2016-11-18 11:49] LABS: ARTERIAL BLOOD GAS ALLEN TEST NORMAL; ARTERIAL BLOOD GAS ART SITE LEFT RADIAL; ARTERIAL BLOOD GAS DELIVERY NASAL CANNULA; ARTERIAL BLOOD GAS PO2 37.8 mmHg (80.0-100); ARTERIAL DRAW? YES
[2016-11-19 05:38] LABS: HEMATOCRIT 39.3 % (38.0-50.0); HEMOGLOBIN 13.1 gm/dL (13.0-16.0); MEAN CELL VOLUME 85.1 FL (83-96); MEAN CORPUSCULAR HEMOGLOBIN 28.4 PG (28-34); MEAN CORPUSCULAR HGB CONC 33.3 g/dL (30-36); MEAN PLATELET VOLUME 7.1 FL (6.5-11.5); RED BLOOD COUNT 4.61 X10e (3.90-5.60); RED CELL DISTRIBUTION WIDTH 15.4 % (11.0-15.5); WHITE BLOOD COUNT 13.1 X10e3 (4.0-10.5)
[2016-11-19 06:15] LABS: BUN/CREATININE RATIO 18.75; CALCIUM SERUM 8.9 mg/dL (8.4-10.2); CREATININE SERUM 0.8 mg/dL (0.6-1.4); GLOM FILT RATE Estimated 93.1 mL/min (>60); POTASSIUM 4.5 mmol/L (3.5-5.1)
[2016-11-20 06:57] LABS: BUN/CREATININE RATIO 16.25; CALCIUM SERUM 8.5 mg/dL (8.4-10.2); CREATININE SERUM 0.8 mg/dL (0.6-1.4); GLOM FILT RATE Estimated 93.1 mL/min (>60); POTASSIUM 4.4 mmol/L (3.5-5.1)
[2016-11-21 06:48] LABS: CALCIUM SERUM 8.4 mg/dL (8.4-10.2); CREATININE SERUM 0.8 mg/dL (0.6-1.4); GLOM FILT RATE Estimated 93.1 mL/min (>60); POTASSIUM 4.4 mmol/L (3.5-5.1)
[2016-11-22 05:13] LABS: HEMATOCRIT 37.2 % (38.0-50.0); HEMOGLOBIN 12.7 gm/dL (13.0-16.0); MEAN CELL VOLUME 84.6 FL (83-96); MEAN CORPUSCULAR HEMOGLOBIN 28.8 PG (28-34); MEAN CORPUSCULAR HGB CONC 34.1 g/dL (30-36); MEAN PLATELET VOLUME 6.8 FL (6.5-11.5); RED BLOOD COUNT 4.4 X10e (3.90-5.60); RED CELL DISTRIBUTION WIDTH 14.9 % (11.0-15.5); WHITE BLOOD COUNT 7.4 X10e3 (4.0-10.5)
[2016-11-23 07:14] LABS: HEMATOCRIT 38.8 % (38.0-50.0); HEMOGLOBIN 12.9 gm/dL (13.0-16.0); MEAN CELL VOLUME 85.2 FL (83-96); MEAN CORPUSCULAR HEMOGLOBIN 28.3 PG (28-34); MEAN CORPUSCULAR HGB CONC 33.2 g/dL (30-36); MEAN PLATELET VOLUME 6.7 FL (6.5-11.5); RED BLOOD COUNT 4.55 X10e (3.90-5.60); WHITE BLOOD COUNT 8.6 X10e3 (4.0-10.5)
[2016-11-23 07:52] LABS: CALCIUM SERUM 8.6 mg/dL (8.4-10.2); CREATININE SERUM 0.9 mg/dL (0.6-1.4); GLOM FILT RATE Estimated 88.7 mL/min (>60); POTASSIUM 4.8 mmol/L (3.5-5.1)
[2016-11-24 06:06] LABS: BUN/CREATININE RATIO 23.75; CALCIUM SERUM 8.5 mg/dL (8.4-10.2); CREATININE SERUM 0.8 mg/dL (0.6-1.4); GLOM FILT RATE Estimated 93.1 mL/min (>60); POTASSIUM 4.4 mmol/L (3.5-5.1)
[2016-11-24] MEDS ORDERED: GLUCOTROL PO (19:25)
[2016-11-25] MEDS ORDERED: LISINOPRIL5 MG PO (10:55)
[2016-11-25] MEDS ORDERED: REMERON15 MG PO (10:59)
[2016-11-25] MEDS ORDERED: FLONASE 0.05% N16 G1 (10:59)
[2016-11-25] MEDS ORDERED: DULERA 200 MCG/13 GM INH (11:00)
[2016-11-25] MEDS ORDERED: AZELASTINE137 MCG/0. (11:02)
[2016-11-25] MEDS ORDERED: DOXYCYCLINE HY100 M3 PO (11:06)
[2016-11-25] MEDS ORDERED: OMNICEF300 M1 PO (11:06)
== END 2016-11-25 14:54 | disposition home or self-care (01) | DRG 166 ==
LOC: COPS 06:27 → C3A PCU 12:00 → COPS 12:00 → C3A PCU 12:00 → COPS 12:05 → C3A PCU 12:05
PROVIDERS: Internal Medicine Pulmonary Disease
PROC: 0B9C8ZX Drainage of Right Upper Lung Lobe, Via Natural or Artificial Opening Endoscopic, Diagnostic (ICD-10-PCS; 2016-11-18)
PROC: 0B9C8ZX Drainage of Right Upper Lung Lobe, Via Natural or Artificial Opening Endoscopic, Diagnostic (ICD-10-PCS; 2016-11-18 08:00)
PROC: B24BZZZ Ultrasonography of Heart with Aorta (ICD-10-PCS; principal; 2016-11-21)
DX: J96.21 Acute and chronic respiratory failure with hypoxia (principal); J18.9 Pneumonia, unspecified organism; B44.9 Aspergillosis, unspecified; F33.2 Major depressive disorder, recurrent severe without psychotic features; J44.0 Chronic obstructive pulmonary disease with (acute) lower respiratory infection; I50.22 Chronic systolic (congestive) heart failure; J44.1 Chronic obstructive pulmonary disease with (acute) exacerbation; R04.2 Hemoptysis; Z87.891 Personal history of nicotine dependence; I34.0 Nonrheumatic mitral (valve) insufficiency; I25.10 Atherosclerotic heart disease of native coronary artery without angina pectoris; Z95.5 Presence of coronary angioplasty implant and graft; R91.1 Solitary pulmonary nodule; I25.2 Old myocardial infarction; I25.5 Ischemic cardiomyopathy; E78.5 Hyperlipidemia, unspecified
CPT/HCPCS: 36600; 71010; 71250; 80048; 82803; 83605; 83880; 85027; 87070; 87102; 87116; 87205; 87206; 87252; 87254; 87305; 87633; 88108; 88305; 88312; 89051; 93005; 93306; 93970; 94640; 94664; 94760; J0171; J0692; J1650; J1940